=== PATIENT | male | born 1965 | race Caucasian/White ===

== ENCOUNTER 2018-06-09 19:09 | Emergency (ER) | payer OTHER ==
[2018-06-09 19:19] VITALS: BP 119/54
[2018-06-09] MEDS ORDERED: Furosemide 20 MG/2 ML VIAL IV ONE (19:54)
[2018-06-09] MEDS ORDERED: Sodium Chloride 0.9% 10 ML Syringe FLUSH PRN (19:54)
--- NOTE | 2018-06-09 20:00 | EDM.PDOC ---
ED HPI GENERAL MEDICAL PROBLEM - General Chief Complaint: Lower Extremity Injury/Pain Stated Complaint: swollen left leg Time Seen by Provider: 06/09/18 19:30 Source of Information: Reports: Patient, Family, RN, RN Notes Reviewed History Limitations: Reports: No Limitations - History of Present Illness INITIAL COMMENTS - FREE TEXT/NARRATIVE: Patient presents the emergency room at [facility] for evaluation of bilateral lower extremity fluid retention. The patient states while at his oncology appointment today the first noticed he had swelling in his legs, therefore he was given IV Lasix and diuresed very well. The patient states since then his fluid retention has returned. The patient denies any chest pain. The patient does not have any shortness of breath. No focal neurological deficits. The patient denies any pain in the lower extremities. The patient can ambulate without problems. The patient denies any numbness tingling or paresthesias. Otherwise no other concerns. Onset: Today Onset Date: 06/09/18 - Related Data Allergies Allergy/AdvReac Type Severity Reaction Status Date / Time No Known Allergies Allergy Verified 06/09/18 19:16 Home Meds: Home Meds Sennosides/Docusate Sodium [Senna-S] 2 tab PO BID 04/22/18 [History] Varenicline Tartrate [Chantix] 1 mg PO BID 04/22/18 [History] Acetaminophen [Tylenol] 650 mg PO Q4H PRN 06/08/18 [History] Aspirin 81 mg PO DAILY 06/08/18 [History] Clopidogrel Bisulfate [Plavix] 75 mg PO DAILY 06/08/18 [History] Gabapentin [Neurontin] 300 mg PO TID 06/08/18 [History] HYDROmorphone [Dilaudid] 2 mg PO Q3H PRN 06/08/18 [History] Lidocaine 5% [Lidoderm 5%] 1 patch TOP DAILY 06/08/18 [History] Lidocaine/Prilocaine [EMLA Crm] 1 applic TOP ASDIRECTED 06/08/18 [History] Lisinopril 5 mg PO DAILY 06/08/18 [History] Metoprolol Succinate [Toprol XL] 25 mg PO DAILY 06/08/18 [History] Morphine Sulfate [Morphabond ER] 90 mg PO Q8H 06/08/18 [History] Multivitamin with Minerals [Multiple Vitamin] 1 tab PO DAILY 06/08/18 [History] Nitroglycerin [Nitrostat] 0.4 mg SL ASDIRECTED PRN 06/08/18 [History] Omeprazole 40 mg PO DAILY 06/08/18 [History] Polyethylene Glycol 3350 [MiraLAX] 17 gm PO DAILY 06/08/18 [History] Ranitidine [Zantac] 150 mg PO DAILY 06/08/18 [History] atorvaSTATin [Lipitor] 40 mg PO BEDTIME 06/08/18 [History] Past Medical History - Past Health History Medical/Surgical History: Denies Medical/Surgical History Cardiovascular History: Reports: Hypertension Other Cardiovascular History: FAMILY HX ISCHEMIC HEART DISEASE. PAROXYSMAL SUPRAVENTRICULAR TACHYCARDIA Gastrointestinal History: Reports: GERD Other Gastrointestinal History: REFLUX ESOPHAGITIS. barretts esophagus Other Musculoskeletal History: CLOSED FRACTURE OF NASAL BONES Other Psychiatric History: PERSONAL HX OF TOBACCO USE. PERSONAL HX OF ALCOHOLISM Endocrine/Metabolic History: Reports: Obesity/BMI 30+ Other Endocrine/Metabolic History: IMPAIRED FASTING GLUCOSE - Past Surgical History GI Surgical History: Reports: Cholecystectomy Social & Family History - Tobacco Use Smoking Status *Q: Former Smoker Used Tobacco, but Quit: Yes Month/Year Tobacco Last Used: 2018 Review of Systems - Review of Systems Review Of Systems: ROS reveals no pertinent complaints other than HPI. ED EXAM, GENERAL - Physical Exam Exam: See Below Exam Limited By: No Limitations General Appearance: Alert, No Apparent Distress Respiratory/Chest: No Respiratory Distress, Lungs Clear, Normal Breath Sounds Cardiovascular: Normal Peripheral Pulses, Regular Rate, Rhythm, Other (+2 dependent pitting edema bilateral lower extremities) Peripheral Pulses: 2+: Posterior Tibial (L), Posterior Tibial (R), Dorsalis Pedis (L), Dorsalis Pedis (R) GI/Abdominal: Normal Bowel Sounds, Soft, Non-Tender Neurological: Alert, Oriented Skin Exam: Warm, Dry, Intact, Normal Color Course - Vital Signs Last Recorded V/S: Last Vital Signs Temp 36.6 C 06/09/18 19:16 Pulse 70 06/09/18 19:16 Resp 18 06/09/18 19:16 BP 119/54 L 06/09/18 19:16 Pulse Ox 95 06/09/18 19:16 - Orders/Labs/Meds Orders: Active Orders 24 hr Category Date Time Status Furosemide [Lasix] Med 06/09/18 19:54 Once 20 mg IV ONETIME ONE Sodium Chloride 0.9% [Saline Flush] Med 06/09/18 19:54 Ordered 10 ml FLUSH ASDIRECTED PRN Peripheral IV Insertion Adult [OM.PC] Routine Oth 06/09/18 19:54 Ordered Medication Orders Sodium Chloride (Saline Flush) 10 ml FLUSH ASDIRECTED PRN PRN Reason: Keep Vein Open Meds: Medications Generic Name Dose Route Start Last Admin Trade Name Freq PRN Reason Stop Dose Admin Sodium Chloride 10 ml 06/09/18 19:54 Saline Flush FLUSH ASDIRECTED PRN Keep Vein Open Departure - Departure Time of Disposition: 19:58 Disposition: Home, Self-Care 01 Condition: Good Clinical Impression: Fluid retention in legs - Discharge Information *PRESCRIPTION DRUG MONITORING PROGRAM REVIEWED*: Not Applicable *COPY OF PRESCRIPTION DRUG MONITORING REPORT IN PATIENT EVELYN: Not Applicable Instructions: Edema Referrals: Geovani Kelly PA-C [Primary Care Provider] - Additional Instructions: 1. Avoid salt/sodium 2. Continue same medications at home 3. Recommend elevation of legs to help with swelling 4. See Geovani Kelly tomorrow for a recheck - Problem List Review Problem List Initiated/Reviewed/Updated: Yes - My Orders Last 24 Hours: My Active Orders 06/09/18 19:54 Furosemide [Lasix] 20 mg IV ONETIME ONE Sodium Chloride 0.9% [Saline Flush] 10 ml FLUSH ASDIRECTED PRN Peripheral IV Insertion Adult [OM.PC] Routine - Assessment/Plan Last 24 Hours: My Active Orders 06/09/18 19:54 Furosemide [Lasix] 20 mg IV ONETIME ONE Sodium Chloride 0.9% [Saline Flush] 10 ml FLUSH ASDIRECTED PRN Peripheral IV Insertion Adult [OM.PC] Routine Assessment:: Fluid retention Plan: Will give an additional 20 mg of IV Lasix in the emergency room. Recommend the patient contact his PCP tomorrow for a follow-up visit. We did discuss side effects such as low potassium and that he will need to have this checked. No other changes with any medications. Patient to return to the emergency room or call for any questions or concerns.
== END 2018-06-09 21:34 | disposition home or self-care (01) ==
LOC: VM.ED 19:09
DX: R60.0 Localized edema (principal); I10 Essential (primary) hypertension; K21.9 Gastro-esophageal reflux disease without esophagitis; Z87.891 Personal history of nicotine dependence; Z79.899 Other long term (current) drug therapy; Z79.82 Long term (current) use of aspirin
CPT/HCPCS: 96374; 99284; J1940

== ENCOUNTER 2018-06-10 06:12 | Emergency (ER) | payer OTHER ==
[2018-06-10 06:23] VITALS: BP 124/53
[2018-06-10 06:59] LABS: ANION GAP 11.7 mmol/L (10-20); CHLORIDE,CL 99 mmol/L (98-107); SODIUM,NA 137 mmol/L (136-145)
--- NOTE | 2018-06-10 07:07 | EDM.PDOC ---
ED HPI GENERAL MEDICAL PROBLEM - General Chief Complaint: Respiratory Problem Stated Complaint: SHORTNESS OF BREATH Time Seen by Provider: 06/10/18 06:30 Source of Information: Reports: Patient, RN, RN Notes Reviewed History Limitations: Reports: No Limitations - History of Present Illness INITIAL COMMENTS - FREE TEXT/NARRATIVE: Patient presents to the ED at [facility] for the evaluation of SOB and fluid retention. Patient was seen in this ED last evening for the same symptoms. Patient was given IV Lasix and was discharged home. Patient does not have any history of heart failure or cardiac problems. No focal neurological deficits. No chest pain. No other symptoms. Onset: Today - Related Data Allergies Allergy/AdvReac Type Severity Reaction Status Date / Time No Known Allergies Allergy Verified 06/10/18 06:18 Home Meds: Home Meds Sennosides/Docusate Sodium [Senna-S] 2 tab PO BID 04/22/18 [History] Varenicline Tartrate [Chantix] 1 mg PO BID 04/22/18 [History] Acetaminophen [Tylenol] 650 mg PO Q4H PRN 06/08/18 [History] Aspirin 81 mg PO DAILY 06/08/18 [History] Clopidogrel Bisulfate [Plavix] 75 mg PO DAILY 06/08/18 [History] Gabapentin [Neurontin] 300 mg PO TID 06/08/18 [History] HYDROmorphone [Dilaudid] 2 mg PO Q3H PRN 06/08/18 [History] Lidocaine 5% [Lidoderm 5%] 1 patch TOP DAILY 06/08/18 [History] Lidocaine/Prilocaine [EMLA Crm] 1 applic TOP ASDIRECTED 06/08/18 [History] Lisinopril 5 mg PO DAILY 06/08/18 [History] Metoprolol Succinate [Toprol XL] 25 mg PO DAILY 06/08/18 [History] Morphine Sulfate [Morphabond ER] 90 mg PO Q8H 06/08/18 [History] Multivitamin with Minerals [Multiple Vitamin] 1 tab PO DAILY 06/08/18 [History] Nitroglycerin [Nitrostat] 0.4 mg SL ASDIRECTED PRN 06/08/18 [History] Omeprazole 40 mg PO DAILY 06/08/18 [History] Polyethylene Glycol 3350 [MiraLAX] 17 gm PO DAILY 06/08/18 [History] Ranitidine [Zantac] 150 mg PO DAILY 06/08/18 [History] atorvaSTATin [Lipitor] 40 mg PO BEDTIME 06/08/18 [History] Past Medical History - Past Health History Medical/Surgical History: Denies Medical/Surgical History Cardiovascular History: Reports: Hypertension Other Cardiovascular History: FAMILY HX ISCHEMIC HEART DISEASE. PAROXYSMAL SUPRAVENTRICULAR TACHYCARDIA Gastrointestinal History: Reports: GERD Other Gastrointestinal History: REFLUX ESOPHAGITIS. barretts esophagus Other Musculoskeletal History: CLOSED FRACTURE OF NASAL BONES Other Psychiatric History: PERSONAL HX OF TOBACCO USE. 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 He is unsure of the site, states that he thinks it's in the muscle. - Past Surgical History GI Surgical History: Reports: Cholecystectomy Social & Family History - Tobacco Use Smoking Status *Q: Former Smoker Used Tobacco, but Quit: Yes Month/Year Tobacco Last Used: several months ago ED ROS GENERAL - Review of Systems Review Of Systems: See Below Constitutional: Denies: Fever, Chills Respiratory: Reports: Shortness of Breath. Denies: Cough Cardiovascular: Denies: Chest Pain, Palpitations GI/Abdominal: Denies: Abdominal Pain, Nausea, Vomiting Skin: Reports: No Symptoms Neurological: Reports: No Symptoms ED EXAM, GENERAL - Physical Exam Exam: See Below Exam Limited By: No Limitations General Appearance: Alert, No Apparent Distress Respiratory/Chest: No Respiratory Distress, Lungs Clear, Normal Breath Sounds Cardiovascular: Normal Peripheral Pulses, Regular Rate, Rhythm, Other (trace bilateral LE edema) Peripheral Pulses: 2+: Posterior Tibial (L), Posterior Tibial (R), Dorsalis Pedis (L), Dorsalis Pedis (R) GI/Abdominal: Normal Bowel Sounds, Soft, Non-Tender Neurological: Alert, Oriented Skin Exam: Warm, Dry, Intact, Normal Color Course - Vital Signs Last Recorded V/S: Last Vital Signs Temp 36.1 C 06/10/18 06:12 Pulse 74 06/10/18 06:12 Resp 20 06/10/18 06:12 BP 124/53 L 06/10/18 06:12 Pulse Ox 98 06/10/18 06:12 - Orders/Labs/Meds Orders: Active Orders 24 hr Category Date Time Status Chest 2V [CR] Stat Exams 06/10/18 06:15 Taken Labs: Laboratory Tests 06/10/18 Range/Units 06:26 Sodium 137 (136-145) mmol/L Potassium 4.7 (3.5-5.1) mmol/L Chloride 99 (98-107) mmol/L Carbon Dioxide 31 (21-32) mmol/L Anion Gap 11.7 (10-20) mmol/L BUN 20 H (7-18) mg/dL Creatinine 0.8 (0.70-1.30) mg/dL Est Cr Clr Drug Dosing TNP Estimated GFR (MDRD) > 60 Glucose 105 (74-106) mg/dL Calcium 7.9 L (8.5-10.1) mg/dL NT-Pro-B Natriuret Pep 318 H (<=125) pg/mL - Radiology Interpretation Free Text/Narrative:: CXR: No acute abnormalities See scanned report in EMR for details Departure - Departure Time of Disposition: 07:22 Disposition: Home, Self-Care 01 Condition: Good Clinical Impression: Fluid retention in legs - Discharge Information *PRESCRIPTION DRUG MONITORING PROGRAM REVIEWED*: Not Applicable *COPY OF PRESCRIPTION DRUG MONITORING REPORT IN PATIENT EVELYN: Not Applicable Instructions: Edema Referrals: Geovani Kelly PA-C [Ordering Only Provider] - Additional Instructions: See Geovani Kelly in clinic today for follow up - Problem List Review Problem List Initiated/Reviewed/Updated: Yes - My Orders Last 24 Hours: My Active Orders 06/10/18 06:15 Chest 2V [CR] Stat - Assessment/Plan Last 24 Hours: My Active Orders 06/10/18 06:15 Chest 2V [CR] Stat Assessment:: Mild fluid retention Plan: Labs and xray discussed with patient. No acute findings at this point. Patient is feeling much better since just sitting in the ER. Will discharge home and have patient see his PCP in clinic today. Patient agrees with POC and wishes to proceed. Patient discharged in stable condition.
--- NOTE | 2018-06-10 08:59 | CR ---
[id number] RAD/RAD Chest PA And Lateral EXAM: RAD Chest PA And Lateral INDICATION: DYSPNEA. COMPARISON: March 15, 2018. DISCUSSION: Left chest wall Mediport. Cardiomediastinal silhouette is normal in size and contour. No infiltrate, effusion, pneumothorax, or edema. Low lung volumes associated vascular crowding. IMPRESSION: No acute cardiopulmonary abnormality. Abimael Eid DO 06/10/18 0858 Thank you for allowing us to participate in the care of your patient.
== END 2018-06-10 07:27 | disposition home or self-care (01) ==
LOC: VM.ED 06:12
DX: R60.9 Edema, unspecified (principal); I10 Essential (primary) hypertension; K21.9 Gastro-esophageal reflux disease without esophagitis; Z79.82 Long term (current) use of aspirin; Z79.899 Other long term (current) drug therapy; Z87.891 Personal history of nicotine dependence
CPT/HCPCS: 36415; 71046; 80048; 83880; 99285-25

== ENCOUNTER 2018-06-25 18:43 | Observation (INO) | payer OTHER ==
[2018-06-25] MEDS ORDERED: Sodium Chloride 0.9% 10 ML Syringe FLUSH PRN (19:07)
[2018-06-25] MEDS ORDERED: Sodium Chloride 0.9% 1,000 ML IV ONE (19:07)
[2018-06-25 19:49] LABS: CHLORIDE,CL 100 mmol/L (98-107); SODIUM,NA 138 mmol/L (136-145)
[2018-06-25 19:50] LABS: ANION GAP 11.5 mmol/L (10-20)
[2018-06-25] MEDS ORDERED: Sodium Chloride 0.9% 1,000 ML IV SCH ×2 (20:30→21:00)
--- NOTE | 2018-06-25 20:46 | EDM.PDOC ---
ED HPI GENERAL MEDICAL PROBLEM - General Chief Complaint: General Stated Complaint: Lethargic / Low Blood Pressure Time Seen by Provider: 06/25/18 19:00 Source of Information: Reports: Patient - History of Present Illness INITIAL COMMENTS - FREE TEXT/NARRATIVE: Patient comes in to the emergency department with weakness and fatigue. Patient had his port the de-accessed today. He does have active cancer and undergoing treatment. He states that he felt tired and fatigued this morning and they removed his port access however since then he has not felt well. He feels generalized fatigue, weak, nauseous, and lower extremity edema. Onset: Gradual Location: Reports: Generalized Quality: Reports: Ache Severity: Mild Improves with: Reports: None Worsens with: Reports: None Associated Symptoms: Reports: Fever/Chills, Loss of Appetite, Malaise, Nausea/ Vomiting, Weakness - Related Data Allergies Allergy/AdvReac Type Severity Reaction Status Date / Time No Known Allergies Allergy Verified 06/10/18 06:18 Home Meds: Home Meds Sennosides/Docusate Sodium [Senna-S] 2 tab PO BID 04/22/18 [History] Varenicline Tartrate [Chantix] 1 mg PO BID 04/22/18 [History] Acetaminophen [Tylenol] 650 mg PO Q4H PRN 06/08/18 [History] Aspirin 81 mg PO DAILY 06/08/18 [History] Clopidogrel Bisulfate [Plavix] 75 mg PO DAILY 06/08/18 [History] Gabapentin [Neurontin] 300 mg PO TID 06/08/18 [History] HYDROmorphone [Dilaudid] 2 mg PO Q3H PRN 06/08/18 [History] Lidocaine 5% [Lidoderm 5%] 1 patch TOP DAILY 06/08/18 [History] Lidocaine/Prilocaine [EMLA Crm] 1 applic TOP ASDIRECTED 06/08/18 [History] Lisinopril 5 mg PO DAILY 06/08/18 [History] Metoprolol Succinate [Toprol XL] 25 mg PO DAILY 06/08/18 [History] Morphine Sulfate [Morphabond ER] 90 mg PO Q8H 06/08/18 [History] Multivitamin with Minerals [Multiple Vitamin] 1 tab PO DAILY 06/08/18 [History] Nitroglycerin [Nitrostat] 0.4 mg SL ASDIRECTED PRN 06/08/18 [History] Omeprazole 40 mg PO DAILY 06/08/18 [History] Polyethylene Glycol 3350 [MiraLAX] 17 gm PO DAILY 06/08/18 [History] Ranitidine [Zantac] 150 mg PO DAILY 06/08/18 [History] atorvaSTATin [Lipitor] 40 mg PO BEDTIME 06/08/18 [History] Past Medical History - Past Health History Medical/Surgical History: Denies Medical/Surgical History Cardiovascular History: Reports: Hypertension Other Cardiovascular History: FAMILY HX ISCHEMIC HEART DISEASE. PAROXYSMAL SUPRAVENTRICULAR TACHYCARDIA Gastrointestinal History: Reports: GERD Other Gastrointestinal History: REFLUX ESOPHAGITIS. barretts esophagus Other Musculoskeletal History: CLOSED FRACTURE OF NASAL BONES Other Psychiatric History: PERSONAL HX OF TOBACCO USE. 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 He is unsure of the site, states that he thinks it's in the muscle. - Past Surgical History GI Surgical History: Reports: Cholecystectomy ED ROS GENERAL - Review of Systems Review Of Systems: See Below Constitutional: Reports: Malaise, Weakness, Fatigue HEENT: Reports: No Symptoms Respiratory: Reports: No Symptoms Cardiovascular: Reports: No Symptoms Endocrine: Reports: No Symptoms GI/Abdominal: Reports: No Symptoms : Reports: No Symptoms Musculoskeletal: Reports: No Symptoms Skin: Reports: No Symptoms Neurological: Reports: No Symptoms Psychiatric: Reports: No Symptoms Hematologic/Lymphatic: Reports: No Symptoms Immunologic: Reports: No Symptoms ED EXAM, GENERAL - Physical Exam Exam: See Below Exam Limited By: No Limitations General Appearance: Alert, WD/WN, No Apparent Distress Head: Atraumatic, Normocephalic Neck: Normal Inspection, Supple, Non-Tender, Full Range of Motion Respiratory/Chest: No Respiratory Distress, Lungs Clear, Normal Breath Sounds, No Accessory Muscle Use, Chest Non-Tender GI/Abdominal: Normal Bowel Sounds, Soft, Non-Tender, No Distention, No Mass Back Exam: Normal Inspection, Full Range of Motion Extremities: Other (bilateral lower extremity swelling. ) Neurological: Alert, Oriented Psychiatric: Normal Affect, Normal Mood Skin Exam: Other (bilateral lower extremity swelling ) Course - Orders/Labs/Meds Orders: Active Orders 24 hr Category Date Time Status Sodium Chloride 0.9% [Normal Saline] 1,000 ml Med 06/25/18 20:30 Active IV ASDIRECTED Sodium Chloride 0.9% [Saline Flush] Med 06/25/18 19:07 Active 10 ml FLUSH ASDIRECTED PRN Peripheral IV Insertion Adult [OM.PC] Stat Oth 06/25/18 19:07 Ordered Medication Orders Sodium Chloride (Normal Saline) 1,000 mls @ 125 mls/hr IV ASDIRECTED ALEJANDRO Sodium Chloride (Saline Flush) 10 ml FLUSH ASDIRECTED PRN PRN Reason: Keep Vein Open Labs: Laboratory Tests 06/25/18 06/25/18 Range/Units 19:22 19:22 WBC 4.2 (4.0-10.0) x10^3/uL RBC 3.43 L (4.5-6.0) x10^6/uL Hgb 10.4 L D (14.0-18.0) g/dL Hct 33.0 L (40.0-52.0) % MCV 96.2 H D (78.0-93.0) fL MCH 30.3 (26.0-32.0) pg MCHC 31.5 L (32.0-36.0) g/dL RDW Coeff of Saritha 19.0 H (10.0-15.0) % Plt Count 105 L D (130-400) x10^3/uL Neut % (Auto) 67.0 (50.0-80.0) % Lymph % (Auto) 26.1 (25.0-50.0) % Grand % (Auto) 6.7 (2.0-11.0) % Eos % (Auto) 0.0 (0.0-4.0) % Baso % (Auto) 0.2 (0.2-1.2) % Sodium 138 (136-145) mmol/L Potassium 4.5 (3.5-5.1) mmol/L Chloride 100 (98-107) mmol/L Carbon Dioxide 31 (21-32) mmol/L Anion Gap 11.5 (10-20) mmol/L BUN 14 (7-18) mg/dL Creatinine 0.7 (0.70-1.30) mg/dL Est Cr Clr Drug Dosing TNP Estimated GFR (MDRD) > 60 Glucose 101 (74-106) mg/dL Calcium 7.9 L (8.5-10.1) mg/dL Corrected Calcium 9.50 (8.5-10.1) mg/dL Total Bilirubin 0.7 (0.2-1.0) mg/dL AST 54 H (15-37) U/L ALT 42 (16-63) U/L Alkaline Phosphatase 106 (46-116) U/L Total Protein 5.5 L (6.4-8.2) g/dL Albumin 2.0 L (3.4-5.0) g/dL Globulin 3.5 Albumin/Globulin Ratio 0.57 Meds: Medications Generic Name Dose Route Start Last Admin Trade Name Freq PRN Reason Stop Dose Admin Sodium Chloride 1,000 mls @ 125 mls/hr 06/25/18 20:30 Normal Saline IV ASDIRECTED ALEJANDRO Sodium Chloride 10 ml 06/25/18 19:07 Saline Flush FLUSH ASDIRECTED PRN Keep Vein Open Discontinued Medications Generic Name Dose Route Start Last Admin Trade Name Freq PRN Reason Stop Dose Admin Sodium Chloride 1,000 mls @ 1,000 mls/hr 06/25/18 19:07 06/25/18 19:14 Normal Saline IV 06/25/18 20:06 1,000 mls/hr ONETIME ONE Administration Departure - Departure Time of Disposition: 20:40 Disposition: Refer to Observation Condition: Good Clinical Impression: Dehydration, Fatigue due to treatment Hypotension Qualifiers: Hypotension type: unspecified hypotension type Qualified Code(s): I95.9 - Hypotension, unspecified - Discharge Information *PRESCRIPTION DRUG MONITORING PROGRAM REVIEWED*: Not Applicable *COPY OF PRESCRIPTION DRUG MONITORING REPORT IN PATIENT EVELYN: Not Applicable - Problem List Review Problem List Initiated/Reviewed/Updated: Yes - My Orders Last 24 Hours: My Active Orders 06/25/18 19:07 Sodium Chloride 0.9% [Saline Flush] 10 ml FLUSH ASDIRECTED PRN Peripheral IV Insertion Adult [OM.PC] Stat 06/25/18 20:30 Sodium Chloride 0.9% [Normal Saline] 1,000 ml IV ASDIRECTED - Assessment/Plan Admission H&P: Please use this note as an admission H&P Last 24 Hours: My Active Orders 06/25/18 19:07 Sodium Chloride 0.9% [Saline Flush] 10 ml FLUSH ASDIRECTED PRN Peripheral IV Insertion Adult [OM.PC] Stat 06/25/18 20:30 Sodium Chloride 0.9% [Normal Saline] 1,000 ml IV ASDIRECTED Assessment:: 1. weakness 2. fatigue 3. nausea 4. hypotension Plan: 1. labs completed in ER. results reviewed with the pt. 2. IV fluid bolus given for hypotension 3. Pt continues to feel fatigue and weak. but does feel a bit better with the fluid bolus. Pt will be admitted over night to observation for further slower rehydration. Will continue to monitor is blood pressure for it was low upon arrival. Pt does have lower extremity edema that he is currently being treated for a DVT and we do not want to give to much fluid at once. 4. pt is agreeable to this plan 5. Pt will be admitted to observation for further management. 6. All questions and concerns addressed prior to admit 7. Labs will be ordered for the am
[2018-06-25] MEDS ORDERED: Ondansetron 4 MG Tab.DIS PO PRN (20:54)
[2018-06-25] MEDS ORDERED: Acetaminophen 325 MG Tab PO PRN (20:54)
[2018-06-25] MEDS ORDERED: Ibuprofen 200 MG Tab PO PRN (20:54)
[2018-06-25] MEDS ORDERED: Nitroglycerin 0.4 MG Tab.SL SL PRN (20:59)
[2018-06-25] MEDS ORDERED: Morphine 60 MG Tab.ER PO SCH (21:00)
[2018-06-26] MEDS: Morphine 30 MG Tab.ER PO SCH ×2 (00:58→09:00)
[2018-06-26] MEDS ORDERED: Aspirin 81 MG Tab.Chew PO SCH (08:00)
[2018-06-26] MEDS ORDERED: Polyethylene Glycol 3350 Powder 17 GM Packet PO SCH (08:00)
[2018-06-26] MEDS ORDERED: Famotidine 20 MG Tab PO SCH (08:00)
[2018-06-26] MEDS ORDERED: Non-Formulary Medication 1 Each (Lidocaine 5% [Lidoderm 5%] 1 PATCH) TOP SCH (08:00)
[2018-06-26] MEDS ORDERED: Metoprolol Succinate 25 MG Tab.ER PO SCH (08:00)
[2018-06-26] MEDS ORDERED: Omeprazole 20 MG Cap.CR PO SCH (08:00)
[2018-06-26] MEDS ORDERED: Lisinopril 5 MG Tab PO SCH (08:00)
[2018-06-26] MEDS ORDERED: Clopidogrel 75 MG Tab PO SCH (08:00)
[2018-06-26 08:53] LABS: CHLORIDE,CL 102 mmol/L (98-107); SODIUM,NA 138 mmol/L (136-145)
[2018-06-26 08:57] LABS: ANION GAP 11.5 mmol/L (10-20)
[2018-06-26] MEDS: Gabapentin 300 MG Cap PO SCH ×2 (09:00→11:57)
[2018-06-26] MEDS ORDERED: Lidocaine 4% 1 each Patch TOP SCH (10:48)
[2018-06-26] MEDS ORDERED: Enoxaparin 100 MG/1 ML Syringe SUBCUT SCH (11:00)
--- NOTE | 2018-06-26 11:10 | PCM.DCSUM1 ---
Discharge Summary - Hospital Course HPI Initial Comments: ER HPI: Patient comes in to the emergency department with weakness and fatigue. Patient had his port the de-accessed today. He does have active cancer and undergoing treatment. He states that he felt tired and fatigued this morning and they removed his port access however since then he has not felt well. He feels generalized fatigue, weak, nauseous, and lower extremity edema. Brief History: Patient was admitted for observation overnight. Patient received fluids and elevated his feet. Patient states that over the night he's felt much better with his increase in fluid. He also states that the swelling in his lower extremities have decreased. He states that he feels much better. He has had no concerns or complaints overnight. As that he can go home and continue to rest. Vital signs have remained stable. Patient is eating and tolerating ambulation without incident. Labs this morning have showed improvement. She like to go home and continue the healing process. Diagnosis: Stroke: No - Discharge Data Discharge Date: 06/26/18 Discharge Disposition: Home, Self-Care 01 Condition: Good - Discharge Diagnosis/Problem(s) (1) Dehydration SNOMED Code(s): 13646655 ICD Code: E86.0 - DEHYDRATION Status: Acute Current Visit: Yes (2) Fatigue due to treatment SNOMED Code(s): 945583147 ICD Code: R53.83 - OTHER FATIGUE Status: Acute Current Visit: Yes (3) Hypotension SNOMED Code(s): 05192380 ICD Code: I95.9 - HYPOTENSION, UNSPECIFIED Status: Acute Current Visit: Yes Qualifiers: Hypotension type: unspecified hypotension type Qualified Code(s): I95.9 - Hypotension, unspecified - Patient Summary/Data Recommended Follow-up Testing/Procedures: Follow up with PCP or Oncologist within 2-3 days - Patient Instructions Diet: Heart Healthy Diet Activity: As Tolerated, No Strenuous Activities Driving: May Drive Today Showering/Bathing: May Shower Notify Provider of: Fever, Increased Pain - Discharge Plan *PRESCRIPTION DRUG MONITORING PROGRAM REVIEWED*: Not Applicable *COPY OF PRESCRIPTION DRUG MONITORING REPORT IN PATIENT EVELYN: Not Applicable Home Medications: Home Meds Sennosides/Docusate Sodium [Senna-S] 2 tab PO BID 04/22/18 [History] Varenicline Tartrate [Chantix] 1 mg PO BID 04/22/18 [History] Acetaminophen [Tylenol] 650 mg PO Q4H PRN 06/08/18 [History] Clopidogrel Bisulfate [Plavix] 75 mg PO DAILY 06/08/18 [History] Gabapentin [Neurontin] 300 mg PO TID 06/08/18 [History] HYDROmorphone [Dilaudid] 2 mg PO Q3H PRN 06/08/18 [History] Lidocaine 5% [Lidoderm 5%] 1 patch TOP DAILY 06/08/18 [History] Lidocaine/Prilocaine [EMLA Crm] 1 applic TOP ASDIRECTED 06/08/18 [History] Morphine Sulfate [Morphabond ER] 60 mg PO BID 06/08/18 [History] Multivitamin with Minerals [Multiple Vitamin] 1 tab PO DAILY 06/08/18 [History] Nitroglycerin [Nitrostat] 0.4 mg SL ASDIRECTED PRN 06/08/18 [History] Omeprazole 40 mg PO DAILY 06/08/18 [History] Polyethylene Glycol 3350 [MiraLAX] 17 gm PO DAILY 06/08/18 [History] Ranitidine [Zantac] 150 mg PO DAILY 06/08/18 [History] atorvaSTATin [Lipitor] 40 mg PO BEDTIME 06/08/18 [History] Calcium Carbonate [Calci-Chew] 500 mg PO TID 06/25/18 [History] Enoxaparin [Lovenox] 100 mg SUBCUT DAILY 06/25/18 [History] Lisinopril 10 mg PO DAILY 06/25/18 [History] Metoprolol Succinate [Toprol XL] 25 mg PO DAILY 06/25/18 [History] Nystatin 100,000 unit PO QID 06/25/18 [History] Prochlorperazine Maleate [Compazine] 10 mg PO QID PRN 06/25/18 [History] Simethicone 80 mg PO QID PRN 06/25/18 [History] Forms: ED Department Discharge Referrals: Geovani Kelly PA-C [Primary Care Provider] - - Discharge Summary/Plan Comment DC Time >30 min.: No - General Info Date of Service: 06/26/18 Admission Dx/Problem (Free Text: 1. dehydration 2. fatigue Functional Status: Reports: Pain Controlled, Tolerating Diet, Ambulating - Review of Systems General: Reports: No Symptoms HEENT: Reports: No Symptoms Pulmonary: Reports: No Symptoms Cardiovascular: Reports: No Symptoms Gastrointestinal: Reports: No Symptoms Genitourinary: Reports: No Symptoms Musculoskeletal: Reports: No Symptoms Skin: Reports: No Symptoms Neurological: Reports: No Symptoms Psychiatric: Reports: No Symptoms - Patient Data Vitals - Most Recent: Last Vital Signs Temp 36.8 C 06/26/18 05:24 Pulse 71 06/26/18 09:06 Resp 18 06/26/18 05:24 BP 93/52 L 06/26/18 09:06 Pulse Ox 98 06/26/18 07:32 Weight - Most Recent: 133.356 kg I&O - Last 24 hours: Intake & Output 06/25/18 06/26/18 06/26/18 22:59 06:59 14:59 Intake Total 1673 180 Output Total 2400 Balance -727 180 Lab Results - Last 24 hrs: Laboratory Results - last 24 hr 06/25/18 06/25/18 06/26/18 Range/Units 19:22 19:22 08:14 WBC 4.2 4.9 (4.0-10.0) x10^3/uL RBC 3.43 L 3.38 L (4.5-6.0) x10^6/uL Hgb 10.4 L D 10.3 L (14.0-18.0) g/dL Hct 33.0 L 32.6 L (40.0-52.0) % MCV 96.2 H D 96.4 H (78.0-93.0) fL MCH 30.3 30.5 (26.0-32.0) pg MCHC 31.5 L 31.6 L (32.0-36.0) g/dL RDW Coeff of Saritha 19.0 H 18.8 H (10.0-15.0) % Plt Count 105 L D 96 L (130-400) x10^3/uL Neut % (Auto) 67.0 69.9 (50.0-80.0) % Lymph % (Auto) 26.1 22.7 L (25.0-50.0) % [place] % (Auto) 6.7 6.8 (2.0-11.0) % Eos % (Auto) 0.0 0.2 (0.0-4.0) % Baso % (Auto) 0.2 0.4 (0.2-1.2) % Sodium 138 (136-145) mmol/L Potassium 4.5 (3.5-5.1) mmol/L Chloride 100 (98-107) mmol/L Carbon Dioxide 31 (21-32) mmol/L Anion Gap 11.5 (10-20) mmol/L BUN 14 (7-18) mg/dL Creatinine 0.7 (0.70-1.30) mg/dL Est Cr Clr Drug Dosing TNP Estimated GFR (MDRD) > 60 Glucose 101 (74-106) mg/dL Calcium 7.9 L (8.5-10.1) mg/dL Corrected Calcium 9.50 (8.5-10.1) mg/dL Total Bilirubin 0.7 (0.2-1.0) mg/dL AST 54 H (15-37) U/L ALT 42 (16-63) U/L Alkaline Phosphatase 106 (46-116) U/L Total Protein 5.5 L (6.4-8.2) g/dL Albumin 2.0 L (3.4-5.0) g/dL Globulin 3.5 Albumin/Globulin Ratio 0.57 /09/08 Range/Units 08:14 WBC (4.0-10.0) x10^3/uL RBC (4.5-6.0) x10^6/uL Hgb (14.0-18.0) g/dL Hct (40.0-52.0) % MCV (78.0-93.0) fL MCH (26.0-32.0) pg MCHC (32.0-36.0) g/dL RDW Coeff of Saritha (10.0-15.0) % Plt Count (130-400) x10^3/uL Neut % (Auto) (50.0-80.0) % Lymph % (Auto) (25.0-50.0) % [place] % (Auto) (2.0-11.0) % Eos % (Auto) (0.0-4.0) % Baso % (Auto) (0.2-1.2) % Sodium 138 (136-145) mmol/L Potassium 4.5 (3.5-5.1) mmol/L Chloride 102 (98-107) mmol/L Carbon Dioxide 29 (21-32) mmol/L Anion Gap 11.5 (10-20) mmol/L BUN 12 (7-18) mg/dL Creatinine 0.7 (0.70-1.30) mg/dL Est Cr Clr Drug Dosing 141.89 Estimated GFR (MDRD) > 60 Glucose 108 H (74-106) mg/dL Calcium 7.7 L (8.5-10.1) mg/dL Corrected Calcium (8.5-10.1) mg/dL Total Bilirubin (0.2-1.0) mg/dL AST (15-37) U/L ALT (16-63) U/L Alkaline Phosphatase (46-116) U/L Total Protein (6.4-8.2) g/dL Albumin (3.4-5.0) g/dL Globulin Albumin/Globulin Ratio Med Orders - Current: Current Medications Acetaminophen (Tylenol) 650 mg PO Q4H PRN PRN Reason: Pain (Mild 1-3)/fever Aspirin (Aspirin) 81 mg PO DAILY [facility] Last Admin: 06/26/18 08:59 Dose: 81 mg Atorvastatin Calcium (Lipitor) 40 mg PO BEDTIME [facility] Clopidogrel Bisulfate (Plavix) 75 mg PO DAILY [facility] Last Admin: 06/26/18 08:59 Dose: 75 mg Enoxaparin Sodium (Lovenox) 200 mg SUBCUT Q24H [facility] Famotidine (Pepcid) 20 mg PO DAILY [facility] Last Admin: 06/26/18 09:05 Dose: 20 mg Gabapentin (Neurontin) 300 mg PO TID [facility] Last Admin: 06/26/18 09:00 Dose: 300 mg Sodium Chloride (Normal Saline) 1,000 mls @ 125 mls/hr IV ASDIRECTED [facility] Ibuprofen (Motrin) 600 mg PO Q6H PRN PRN Reason: Pain (mild 1-3) Lidocaine (Aspercreme 4%) 1 each TOP DAILY [facility] Lisinopril (Prinivil) 5 mg PO DAILY [facility] Last Admin: 06/26/18 09:06 Dose: 5 mg Metoprolol Succinate (Toprol Xl) 25 mg PO DAILY [facility] Last Admin: 06/26/18 09:06 Dose: 25 mg Miscellaneous Information (Remove Patch) 1 ea TRDERM BEDTIME [facility] Morphine Sulfate (Ms Contin) 60 mg PO BID [facility] Last Admin: 06/26/18 09:00 Dose: 60 mg Nitroglycerin (Nitrostat) 0.4 mg SL ASDIRECTED PRN PRN Reason: Chest Pain Omeprazole (Omeprazole) 40 mg PO DAILY [facility] Last Admin: 06/26/18 09:00 Dose: 40 mg Ondansetron HCl (Zofran Odt) 4 mg PO Q6H PRN PRN Reason: nausea, able to take PO Polyethylene Glycol (Miralax) 17 gm PO DAILY [facility] Last Admin: 06/26/18 08:59 Dose: 17 gm Senna/Docusate Sodium (Senna Plus) 2 tab PO BID [facility] Last Admin: 06/26/18 08:59 Dose: 2 tab Sodium Chloride (Saline Flush) 10 ml FLUSH ASDIRECTED PRN PRN Reason: Keep Vein Open Discontinued Medications Sodium Chloride (Normal Saline) 1,000 mls @ 1,000 mls/hr IV ONETIME ONE Stop: 06/25/18 20:06 Last Admin: 06/25/18 19:14 Dose: 1,000 mls/hr Sodium Chloride (Normal Saline) 1,000 mls @ 125 mls/hr IV ASDIRECTED [facility] Last Admin: 06/25/18 22:35 Dose: 125 mls/hr Non-Formulary Medication (Lidocaine 5% [Lidoderm 5%]) 1 patch TOP DAILY [facility] - Exam General: Reports: Alert, Oriented HEENT: Reports: Pupils Equal, Pupils Reactive, EOMI, Mucous Membr. Moist/[place] Neck: Reports: Supple Lungs: Reports: Clear to Auscultation, Normal Respiratory Effort Cardiovascular: Reports: Regular Rate, Regular Rhythm GI/Abdominal Exam: Normal Bowel Sounds, Soft, Non-Tender, No Distention Back Exam: Reports: Normal Inspection, Full Range of Motion Extremities: Normal Range of Motion, Non-Tender, Pedal Edema Skin: Reports: Warm, Dry, Intact Psy/Mental Status: Reports: Alert, Normal Affect, Normal Mood
[2018-06-26] MEDS ORDERED: Acetaminophen 325 MG Tab PO PRN (11:16)
[2018-06-26] MEDS ORDERED: HYDROmorphone 2 MG Tab PO PRN (11:16)
[2018-06-26] MEDS ORDERED: Simethicone 80 MG Tab.Chew PO PRN (11:16)
[2018-06-26] MEDS ORDERED: Lidocaine/Prilocaine 2.5-2.5% Crm 5 GM Tube TOP SCH (11:30)
[2018-06-26] MEDS ORDERED: Nystatin Susp 100,000 Unit/ML 5 ML UD Cup PO SCH (12:00)
[2018-06-26] MEDS ORDERED: Prochlorperazine 5 MG Tab PO PRN (12:00)
[2018-06-26] MEDS ORDERED: Calcium Carbonate 750 MG Tab.Chew PO SCH (12:00)
[2018-06-26 12:27] VITALS: BP 92/56
[2018-06-26] MEDS ORDERED: Non-Formulary Medication 1 Each (Varenicline Tartrate [Chantix] 1 MG) PO SCH (20:00)
[2018-06-26] MEDS ORDERED: atorvaSTATin 40 MG Tab PO SCH (20:00)
[2018-06-27] MEDS ORDERED: Lisinopril 10 MG Tab PO SCH (08:00)
[2018-06-27] MEDS ORDERED: Multivitamins with Iron/Calcium/Folic Acid/Minerals Tab PO SCH (08:00)
[2018-06-27] MEDS ORDERED: Enoxaparin 100 MG/1 ML Syringe SUBCUT SCH (08:00)
[2018-06-27] MEDS ORDERED: Metoprolol Succinate 25 MG Tab.ER PO SCH (08:00)
== END 2018-06-26 15:00 | disposition home or self-care (01) ==
LOC: SUPCPDRO 18:43 → VM.ED 18:43 → VM.MS 20:32
PROVIDERS: ADMIT Nurse Practitioner; ATTEND Nurse Practitioner
DX: E86.0 Dehydration (principal); R53.83 Other fatigue; I95.9 Hypotension, unspecified; E66.9 Obesity, unspecified; Z87.891 Personal history of nicotine dependence; Z79.02 Long term (current) use of antithrombotics/antiplatelets; Z79.899 Other long term (current) drug therapy
CPT/HCPCS: 36415; 80048; 80053; 85025; 94760; 96360; 96372; 99285-25; A9270-GY; G0378; J1650; J7030

== ENCOUNTER 2018-07-09 20:32 | Emergency (ER) | payer OTHER ==
[2018-07-09 20:38] VITALS: BP 133/63
[2018-07-09] MEDS ORDERED: Sodium Chloride 0.9% 1,000 ML IV ONE (20:49)
[2018-07-09] MEDS ORDERED: Sodium Chloride 0.9% 10 ML Syringe FLUSH PRN (20:49)
--- NOTE | 2018-07-09 21:00 | EDM.PDOC ---
ED HPI GENERAL MEDICAL PROBLEM - General Chief Complaint: General Stated Complaint: nausea, fatigue Time Seen by Provider: 07/09/18 20:45 Source of Information: Reports: Patient History Limitations: Reports: No Limitations - History of Present Illness INITIAL COMMENTS - FREE TEXT/NARRATIVE: Patient comes into the Emergency department for complaints of nausea and fatigue postchemotherapy today. Patient states that he had his chemotherapy removed at about 1237 today. He did tell the nurse that he was not feeling well they suggested that he go home and rest and if not feeling better by early this evening to come into the ER. Patient denies any fever, chest pain, sob, or diarrhea. Onset: Gradual Location: Reports: Generalized Quality: Reports: Ache Severity: Mild Improves with: Reports: None Worsens with: Reports: None - Related Data Allergies Allergy/AdvReac Type Severity Reaction Status Date / Time No Known Allergies Allergy Verified 07/09/18 20:34 Home Meds: Home Meds Sennosides/Docusate Sodium [Senna-S] 2 tab PO BID 04/22/18 [History] Varenicline Tartrate [Chantix] 1 mg PO BID 04/22/18 [History] Acetaminophen [Tylenol] 650 mg PO Q4H PRN 06/08/18 [History] Clopidogrel Bisulfate [Plavix] 75 mg PO DAILY 06/08/18 [History] Gabapentin [Neurontin] 300 mg PO TID 06/08/18 [History] HYDROmorphone [Dilaudid] 2 mg PO Q3H PRN 06/08/18 [History] Lidocaine 5% [Lidoderm 5%] 1 patch TOP DAILY 06/08/18 [History] Lidocaine/Prilocaine [EMLA Crm] 1 applic TOP ASDIRECTED 06/08/18 [History] Morphine Sulfate [Morphabond ER] 60 mg PO BID 06/08/18 [History] Multivitamin with Minerals [Multiple Vitamin] 1 tab PO DAILY 06/08/18 [History] Nitroglycerin [Nitrostat] 0.4 mg SL ASDIRECTED PRN 06/08/18 [History] Omeprazole 40 mg PO DAILY 06/08/18 [History] Polyethylene Glycol 3350 [MiraLAX] 17 gm PO DAILY 06/08/18 [History] Ranitidine [Zantac] 150 mg PO DAILY 06/08/18 [History] atorvaSTATin [Lipitor] 40 mg PO BEDTIME 06/08/18 [History] Calcium Carbonate [Calci-Chew] 500 mg PO TID 06/25/18 [History] Enoxaparin [Lovenox] 100 mg SUBCUT DAILY 06/25/18 [History] Lisinopril 10 mg PO DAILY 06/25/18 [History] Metoprolol Succinate [Toprol XL] 25 mg PO DAILY 06/25/18 [History] Nystatin 100,000 unit PO QID 06/25/18 [History] Prochlorperazine Maleate [Compazine] 10 mg PO QID PRN 06/25/18 [History] Simethicone 80 mg PO QID PRN 06/25/18 [History] Past Medical History - Past Health History Medical/Surgical History: Denies Medical/Surgical History Cardiovascular History: Reports: Hypertension, [place] Other Cardiovascular History: PAROXYSMAL SUPRAVENTRICULAR TACHYCARDIA Gastrointestinal History: Reports: GERD, Other (See Below) Other Gastrointestinal History: barretts esophagus Musculoskeletal History: Reports: Other (See Below) Other Musculoskeletal History: CLOSED FRACTURE OF NASAL BONES Psychiatric History: Reports: Other (See Below) Other Psychiatric History: PERSONAL HX OF TOBACCO USE. 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 He is unsure of the site, states that he thinks it's in the muscle. - Past Surgical History GI Surgical History: Reports: Cholecystectomy, Colonoscopy Social & Family History - Family History Family Medical History: Noncontributory Cardiac: Reports: Other (See Below) Other Cardiac Family History: FAMILY HX ISCHEMIC HEART DISEASE - Tobacco Use Used Tobacco, but Quit: Yes Month/Year Tobacco Last Used: 2017 - Caffeine Use Caffeine Use: Reports: Coffee ED ROS GENERAL - Review of Systems Review Of Systems: See Below Constitutional: Reports: Malaise, Weakness, Fatigue HEENT: Reports: No Symptoms Respiratory: Reports: No Symptoms Cardiovascular: Reports: No Symptoms Endocrine: Reports: No Symptoms GI/Abdominal: Reports: No Symptoms : Reports: No Symptoms Musculoskeletal: Reports: No Symptoms Skin: Reports: No Symptoms Neurological: Reports: No Symptoms Psychiatric: Reports: No Symptoms Hematologic/Lymphatic: Reports: No Symptoms Immunologic: Reports: No Symptoms ED EXAM, GENERAL - Physical Exam Exam: See Below Exam Limited By: No Limitations General Appearance: Alert, WD/WN, No Apparent Distress Head: Atraumatic, Normocephalic Neck: Normal Inspection, Supple, Non-Tender, Full Range of Motion Respiratory/Chest: No Respiratory Distress, Lungs Clear, Normal Breath Sounds, No Accessory Muscle Use, Chest Non-Tender Cardiovascular: Normal Peripheral Pulses, No Edema, Tachycardia Back Exam: Normal Inspection, Full Range of Motion Extremities: Normal Inspection, Normal Range of Motion, Non-Tender, No Pedal Edema, Normal Capillary Refill Neurological: Alert, Oriented Psychiatric: Normal Affect, Normal Mood Skin Exam: Warm, Dry, Intact, Normal Color, No Rash Course - Vital Signs Last Recorded V/S: Last Vital Signs Temp 37.7 C 07/09/18 20:35 Pulse 80 07/09/18 20:35 Resp 19 07/09/18 20:35 BP 133/63 07/09/18 20:35 Pulse Ox 95 07/09/18 20:35 - Orders/Labs/Meds Orders: Active Orders 24 hr Category Date Time Status Sodium Chloride 0.9% [Saline Flush] Med 07/09/18 20:49 Active 10 ml FLUSH ASDIRECTED PRN Peripheral IV Insertion Adult [OM.PC] Stat Oth 07/09/18 20:49 Ordered Medication Orders Sodium Chloride (Saline Flush) 10 ml FLUSH ASDIRECTED PRN PRN Reason: Keep Vein Open Labs: Laboratory Tests 07/09/18 07/09/18 Range/Units 21:18 21:18 WBC 2.2 L (4.0-10.0) x10^3/uL RBC 3.21 L (4.5-6.0) x10^6/uL Hgb 9.8 L (14.0-18.0) g/dL Hct 30.5 L (40.0-52.0) % MCV 95.0 H (78.0-93.0) fL MCH 30.5 (26.0-32.0) pg MCHC 32.1 (32.0-36.0) g/dL RDW Coeff of Saritha 16.9 H (10.0-15.0) % Plt Count 279 D (130-400) x10^3/uL Neut % (Auto) 58.1 (50.0-80.0) % Lymph % (Auto) 35.0 (25.0-50.0) % [place] % (Auto) 6.4 (2.0-11.0) % Eos % (Auto) 0.0 (0.0-4.0) % Baso % (Auto) 0.5 (0.2-1.2) % Sodium 137 (136-145) mmol/L Potassium 4.3 (3.5-5.1) mmol/L Chloride 102 (98-107) mmol/L Carbon Dioxide 28 (21-32) mmol/L Anion Gap 11.3 (10-20) mmol/L BUN 9 (7-18) mg/dL Creatinine 0.7 (0.70-1.30) mg/dL Est Cr Clr Drug Dosing TNP Estimated GFR (MDRD) > 60 Glucose 104 (74-106) mg/dL Calcium 7.9 L (8.5-10.1) mg/dL Corrected Calcium 9.42 (8.5-10.1) mg/dL Total Bilirubin 0.5 (0.2-1.0) mg/dL AST 19 (15-37) U/L ALT 12 L (16-63) U/L Alkaline Phosphatase 89 (46-116) U/L Total Protein 6.5 (6.4-8.2) g/dL Albumin 2.1 L (3.4-5.0) g/dL Globulin 4.4 Albumin/Globulin Ratio 0.48 Meds: Medications Generic Name Dose Route Start Last Admin Trade Name Freq PRN Reason Stop Dose Admin Sodium Chloride 10 ml 07/09/18 20:49 Saline Flush FLUSH ASDIRECTED PRN Keep Vein Open Discontinued Medications Generic Name Dose Route Start Last Admin Trade Name Freq PRN Reason Stop Dose Admin Sodium Chloride 1,000 mls @ 1,000 mls/hr 07/09/18 20:49 07/09/18 21:20 Normal Saline IV 07/09/18 21:48 1,000 mls/hr ONETIME ONE Administration Ondansetron HCl 4 mg 07/09/18 21:10 07/09/18 21:20 Zofran IVPUSH 07/09/18 21:11 4 mg ONETIME ONE Administration - Re-Assessments/Exams Free Text/Narrative Re-Assessment/Exam: 07/09/18 23:06 Pt is feeling better and feels he can go home and rest at home. VVS. Resting comfortably. conversing with staff and family. ambulatory with a cane. Departure - Departure Time of Disposition: 23:00 Disposition: Home, Self-Care 01 Condition: Fair Clinical Impression: Fatigue due to treatment - Discharge Information *PRESCRIPTION DRUG MONITORING PROGRAM REVIEWED*: Not Applicable *COPY OF PRESCRIPTION DRUG MONITORING REPORT IN PATIENT EVELYN: Not Applicable Instructions: Weakness, [id number], Dehydration, Adult, [id number] Referrals: Geovani Kelly PA-C [Primary Care Provider] - Forms: ED Department Discharge Additional Instructions: 1. rest 2. increase water intake 3. Follow up with oncologist and discuss options if appropriate to receiving IV fluids and zofran in the outpatient setting periodically during chemo treatment 4. Follow up as needed 5. Activity and diet as tolerated 6. Call with any questions or concerns - My Orders Last 24 Hours: My Active Orders 07/09/18 20:49 Sodium Chloride 0.9% [Saline Flush] 10 ml FLUSH ASDIRECTED PRN Peripheral IV Insertion Adult [OM.PC] Stat - Assessment/Plan Last 24 Hours: My Active Orders 07/09/18 20:49 Sodium Chloride 0.9% [Saline Flush] 10 ml FLUSH ASDIRECTED PRN Peripheral IV Insertion Adult [OM.PC] Stat Assessment:: 1. fatigue 2. nausea Plan: 1. Labs completed in the ER 2. IV fluids given in the ER 3. Patient is feeling better and feels he can go home. It is advisable to have the patient rest at home away from other illnesses if possible with his low white count post chemotherapy today. Patient is aware and will return if need be. 4. Did discuss with the patient to talk with his oncologist about seeing if fluids in the outpatient clinic would be an option. He has needed to come into the ER for fluids after his last chemo treatment and not again. 5. All questions and concerns were addressed prior to discharge
[2018-07-09] MEDS ORDERED: Ondansetron 4 MG/2 ML SDV IVPUSH ONE (21:10)
[2018-07-09 21:44] LABS: CHLORIDE,CL 102 mmol/L (98-107); SODIUM,NA 137 mmol/L (136-145)
[2018-07-09 21:45] LABS: ANION GAP 11.3 mmol/L (10-20)
== END 2018-07-09 23:09 | disposition home or self-care (01) ==
LOC: VM.ED 20:32
DX: R53.83 Other fatigue (principal); K21.9 Gastro-esophageal reflux disease without esophagitis; R11.0 Nausea; I10 Essential (primary) hypertension; I25.2 Old myocardial infarction; Z79.899 Other long term (current) drug therapy; Z87.891 Personal history of nicotine dependence
CPT/HCPCS: 36415; 80053; 85025; 96361; 96374; 99283; J2405; J7030

== ENCOUNTER 2018-08-05 19:23 | Emergency (ER) | payer OTHER ==
[2018-08-05] MEDS ORDERED: Ondansetron 4 MG/2 ML SDV IVPUSH ONE (19:33)
[2018-08-05] MEDS ORDERED: Sodium Chloride 0.9% 10 ML Syringe FLUSH PRN (19:33)
[2018-08-05] MEDS ORDERED: Lactated Ringers 1,000 ML IV ONE (19:33)
[2018-08-05 20:17] VITALS: BP 110/39
[2018-08-05] MEDS ORDERED: LORazepam 0.5 MG Tab PO ONE (22:00)
--- NOTE | 2018-08-05 22:37 | EDM.PDOC ---
ED HPI GENERAL MEDICAL PROBLEM - General Chief Complaint: General Stated Complaint: Nausea, weakness Time Seen by Provider: 08/05/18 19:23 Source of Information: Reports: Patient History Limitations: Reports: No Limitations - History of Present Illness INITIAL COMMENTS - FREE TEXT/NARRATIVE: Pt. presents to ER with complaints of dehydration. 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 He complains that he does not feel like eating or drinking and feels as though he is dehydrated. He denies any other symptoms other than some fatigue. Denies any fever or chills. No chest pain or shortness of breath. No nausea, vomiting, or diarrhea. He states that he was seen in clinic yesterday for oncology and states that everything was normal on his labs. He is requesting some IV fluids. He states that he has had them in the past when he has been dehydrated. He also complains of difficulty sleeping and feeling anxious. Denies any suicidal or homicidal thoughts. Onset Date: 08/05/18 - Related Data Allergies Allergy/AdvReac Type Severity Reaction Status Date / Time No Known Allergies Allergy Verified 08/05/18 20:17 Home Meds: Home Meds Sennosides/Docusate Sodium [Senna-S] 2 tab PO BID 04/22/18 [History] Varenicline Tartrate [Chantix] 1 mg PO BID 04/22/18 [History] Acetaminophen [Tylenol] 650 mg PO Q4H PRN 06/08/18 [History] Clopidogrel Bisulfate [Plavix] 75 mg PO DAILY 06/08/18 [History] Gabapentin [Neurontin] 300 mg PO TID 06/08/18 [History] HYDROmorphone [Dilaudid] 2 mg PO Q3H PRN 06/08/18 [History] Lidocaine 5% [Lidoderm 5%] 1 patch TOP DAILY 06/08/18 [History] Lidocaine/Prilocaine [EMLA Crm] 1 applic TOP ASDIRECTED 06/08/18 [History] Morphine Sulfate [Morphabond ER] 60 mg PO BID 06/08/18 [History] Multivitamin with Minerals [Multiple Vitamin] 1 tab PO DAILY 06/08/18 [History] Nitroglycerin [Nitrostat] 0.4 mg SL ASDIRECTED PRN 06/08/18 [History] Omeprazole 40 mg PO DAILY 06/08/18 [History] Polyethylene Glycol 3350 [MiraLAX] 17 gm PO DAILY 06/08/18 [History] Ranitidine [Zantac] 150 mg PO DAILY 06/08/18 [History] atorvaSTATin [Lipitor] 40 mg PO BEDTIME 06/08/18 [History] Calcium Carbonate [Calci-Chew] 500 mg PO TID 06/25/18 [History] Enoxaparin [Lovenox] 100 mg SUBCUT DAILY 06/25/18 [History] Lisinopril 10 mg PO DAILY 06/25/18 [History] Metoprolol Succinate [Toprol XL] 25 mg PO DAILY 06/25/18 [History] Nystatin 100,000 unit PO QID 06/25/18 [History] Prochlorperazine Maleate [Compazine] 10 mg PO QID PRN 06/25/18 [History] Simethicone 80 mg PO QID PRN 06/25/18 [History] Past Medical History - Past Health History Medical/Surgical History: Denies Medical/Surgical History Cardiovascular History: Reports: CAD, Hypertension, LA, Stents Other Cardiovascular History: PAROXYSMAL SUPRAVENTRICULAR TACHYCARDIA Respiratory History: Reports: COPD Gastrointestinal History: Reports: GERD, Other (See Below) Other Gastrointestinal History: barretts esophagus Musculoskeletal History: Reports: Other (See Below) Other Musculoskeletal History: CLOSED FRACTURE OF NASAL BONES Psychiatric History: Reports: Other (See Below) Other Psychiatric History: PERSONAL HX OF TOBACCO USE. 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 He is unsure of the site, states that he thinks it's in the muscle. - Past Surgical History Cardiovascular Surgical History: Reports: Coronary Artery Stent GI Surgical History: Reports: Cholecystectomy, Colonoscopy Social & Family History - Family History Family Medical History: Noncontributory Cardiac: Reports: Other (See Below) Other Cardiac Family History: FAMILY HX ISCHEMIC HEART DISEASE - Caffeine Use Caffeine Use: Reports: Coffee ED ROS GENERAL - Review of Systems Review Of Systems: See Below Constitutional: Reports: No Symptoms HEENT: Reports: No Symptoms Respiratory: Reports: No Symptoms Cardiovascular: Reports: No Symptoms Endocrine: Reports: No Symptoms GI/Abdominal: Reports: No Symptoms, Decreased Appetite : Reports: No Symptoms Musculoskeletal: Reports: No Symptoms Skin: Reports: No Symptoms Neurological: Reports: No Symptoms Psychiatric: Reports: Anxiety Hematologic/Lymphatic: Reports: No Symptoms Immunologic: Reports: No Symptoms ED EXAM, GENERAL - Physical Exam Exam: See Below Exam Limited By: No Limitations General Appearance: Alert, WD/WN, No Apparent Distress Ears: Normal External Exam, Normal Canal, Hearing Grossly Normal, Normal TMs Nose: Normal Inspection, Normal Mucosa, No Blood Throat/Mouth: Normal Inspection, Normal Lips, Normal Teeth, Normal Gums, Normal Oropharynx, Normal Voice, No Airway Compromise Head: Atraumatic, Normocephalic Neck: Normal Inspection, Supple, Non-Tender, Full Range of Motion Respiratory/Chest: No Respiratory Distress, Lungs Clear, Normal Breath Sounds, No Accessory Muscle Use, Chest Non-Tender Cardiovascular: Normal Peripheral Pulses, Regular Rate, Rhythm, No Edema, No Gallop, No JVD, No Murmur, No Rub Peripheral Pulses: 4+: Radial (R) GI/Abdominal: Normal Bowel Sounds, Soft, Non-Tender, No Organomegaly, No Distention, No Abnormal Bruit, No Mass (Male) Exam: Deferred Rectal (Males) Exam: Deferred Back Exam: Normal Inspection, Full Range of Motion, NT Extremities: Normal Inspection, Normal Range of Motion, Non-Tender, Normal Capillary Refill, No Pedal Edema Neurological: Alert, Oriented, CN II-XII Intact, Normal Cognition, Normal Gait, Normal Reflexes, No Motor/Sensory Deficits Psychiatric: Normal Affect, Normal Mood Skin Exam: Warm, Dry, Intact, Normal Color, No Rash Course - Vital Signs Last Recorded V/S: Last Vital Signs Temp 36.7 C 08/05/18 19:23 Pulse 69 08/05/18 19:23 Resp 16 08/05/18 19:23 BP 110/39 L 08/05/18 19:23 Pulse Ox 99 08/05/18 19:23 - Orders/Labs/Meds Orders: Active Orders 24 hr Category Date Time Status Sodium Chloride 0.9% [Saline Flush] Med 08/05/18 19:33 Active 10 ml FLUSH ASDIRECTED PRN Peripheral IV Insertion Adult [OM.PC] Routine Oth 08/05/18 19:33 Ordered Medication Orders Sodium Chloride (Saline Flush) 10 ml FLUSH ASDIRECTED PRN PRN Reason: Keep Vein Open Meds: Medications Generic Name Dose Route Start Last Admin Trade Name Freq PRN Reason Stop Dose Admin Sodium Chloride 10 ml 08/05/18 19:33 Saline Flush FLUSH ASDIRECTED PRN Keep Vein Open Discontinued Medications Generic Name Dose Route Start Last Admin Trade Name Freq PRN Reason Stop Dose Admin Lactated Ringer's 1,000 mls @ 1,000 mls/hr 08/05/18 19:33 08/05/18 19:45 Ringers, Lactated IV 08/05/18 20:32 1,000 mls/hr ONETIME ONE Administration Lorazepam 0.5 mg 08/05/18 22:00 08/05/18 22:21 Ativan PO 08/05/18 22:01 0.5 mg ONETIME ONE Administration Ondansetron HCl 4 mg 08/05/18 19:33 08/05/18 19:47 Zofran IVPUSH 08/05/18 19:34 4 mg ONETIME ONE Administration Departure - Departure Time of Disposition: 22:30 Disposition: Home, Self-Care 01 Clinical Impression: Dehydration, Anxiety - Discharge Information Instructions: Dehydration, Adult, [id number] Referrals: Geovani Kelly PA-C [Primary Care Provider] - Forms: ED Department Discharge Additional Instructions: Home to rest. Continue with current medications. Follow-up in clinic as needed. - My Orders Last 24 Hours: My Active Orders 08/05/18 19:33 Sodium Chloride 0.9% [Saline Flush] 10 ml FLUSH ASDIRECTED PRN Peripheral IV Insertion Adult [OM.PC] Routine - Assessment/Plan Last 24 Hours: My Active Orders 08/05/18 19:33 Sodium Chloride 0.9% [Saline Flush] 10 ml FLUSH ASDIRECTED PRN Peripheral IV Insertion Adult [OM.PC] Routine Plan: Home to rest. Continue with current medications. Follow-up in clinic as needed.
== END 2018-08-05 22:30 | disposition home or self-care (01) ==
LOC: VM.ED 19:23
DX: E86.0 Dehydration (principal); F41.9 Anxiety disorder, unspecified; I10 Essential (primary) hypertension; I25.10 Atherosclerotic heart disease of native coronary artery without angina pectoris; J44.9 Chronic obstructive pulmonary disease, unspecified; Z79.899 Other long term (current) drug therapy
CPT/HCPCS: 96361; 96374; 99283; A9270; J2405; J7120

== ENCOUNTER 2018-08-09 07:26 | Observation (INO) | payer OTHER ==
[2018-08-09] MEDS ORDERED: Sodium Chloride 0.9% 10 ML Syringe FLUSH PRN (07:44)
[2018-08-09] MEDS ORDERED: Ondansetron 4 MG/2 ML SDV IVPUSH ONE (07:46)
[2018-08-09] MEDS ORDERED: Morphine 4 MG/ML Syringe IVPUSH ONE (07:46)
[2018-08-09 08:38] LABS: ANION GAP 11.6 mmol/L (10-20); CHLORIDE,CL 103 mmol/L (98-107); SODIUM,NA 137 mmol/L (136-145)
[2018-08-09] MEDS ORDERED: Iopamidol 612 MG/ML 100 ML Bottle IVPUSH ONE (08:49)
--- NOTE | 2018-08-09 08:59 | EDM.PDOC ---
ED HPI GENERAL MEDICAL PROBLEM - General Chief Complaint: Abdominal Pain Time Seen by Provider: 08/09/18 07:35 Source of Information: Reports: Patient History Limitations: Reports: No Limitations - History of Present Illness INITIAL COMMENTS - FREE TEXT/NARRATIVE: Pt. presents to ER with complaints of R upper quadrant abdominal pain. He states that the discomfort started last evening. Pt. has a history of metastatic esophageal cancer. Denies any chest pain or shortness of breath. No nausea or vomiting. He denies any trauma to the area. Denies any GI/esophageal bleeding today. Pt. is undergoing chemotherapy and has been tolerating this well. He recently had a cholecystectomy and recently has had an DE with stenting (LAD). He did have some CHF but states that he has not been having any issues with edema or chronic shortness of breath. He states that his stools have been very hard and he has been constipated. He states that he has noticed some bright red blood when he has wiped but states that this is not new for him. Denies any tarry or black stools. Denies any lightheadedness. No vertigo. Onset Date: 08/09/18 Location: Reports: Abdomen Quality: Reports: Ache, Burning, Sharp Right Abdomen Pain Score (Numeric/FACES): 6 - Related Data Allergies Allergy/AdvReac Type Severity Reaction Status Date / Time No Known Allergies Allergy Verified 08/09/18 07:51 Home Meds: Home Meds Sennosides/Docusate Sodium [Senna-S] 2 tab PO BID 04/22/18 [History] Varenicline Tartrate [Chantix] 1 mg PO BID 04/22/18 [History] Acetaminophen [Tylenol] 650 mg PO Q4H PRN 06/08/18 [History] Clopidogrel Bisulfate [Plavix] 75 mg PO DAILY 06/08/18 [History] Gabapentin [Neurontin] 300 mg PO TID 06/08/18 [History] HYDROmorphone [Dilaudid] 2 mg PO Q3H PRN 06/08/18 [History] Lidocaine 5% [Lidoderm 5%] 1 patch TOP DAILY 06/08/18 [History] Lidocaine/Prilocaine [EMLA Crm] 1 applic TOP ASDIRECTED 06/08/18 [History] Morphine Sulfate [Morphabond ER] 60 mg PO BID 06/08/18 [History] Multivitamin with Minerals [Multiple Vitamin] 1 tab PO DAILY 06/08/18 [History] Nitroglycerin [Nitrostat] 0.4 mg SL ASDIRECTED PRN 06/08/18 [History] Omeprazole 40 mg PO DAILY 06/08/18 [History] Polyethylene Glycol 3350 [MiraLAX] 17 gm PO DAILY 06/08/18 [History] Ranitidine [Zantac] 150 mg PO DAILY 06/08/18 [History] atorvaSTATin [Lipitor] 40 mg PO BEDTIME 06/08/18 [History] Calcium Carbonate [Calci-Chew] 500 mg PO TID 06/25/18 [History] Enoxaparin [Lovenox] 100 mg SUBCUT DAILY 06/25/18 [History] Lisinopril 10 mg PO DAILY 06/25/18 [History] Metoprolol Succinate [Toprol XL] 25 mg PO DAILY 06/25/18 [History] Nystatin 100,000 unit PO QID 06/25/18 [History] Prochlorperazine Maleate [Compazine] 10 mg PO QID PRN 06/25/18 [History] Simethicone 80 mg PO QID PRN 06/25/18 [History] Past Medical History - Past Health History Medical/Surgical History: Denies Medical/Surgical History Cardiovascular History: Reports: CAD, Hypertension, DE, Stents Other Cardiovascular History: PAROXYSMAL SUPRAVENTRICULAR TACHYCARDIA Respiratory History: Reports: COPD Gastrointestinal History: Reports: GERD, Other (See Below) Other Gastrointestinal History: barretts esophagus Musculoskeletal History: Reports: Other (See Below) Other Musculoskeletal History: CLOSED FRACTURE OF NASAL BONES Psychiatric History: Reports: Other (See Below) Other Psychiatric History: PERSONAL HX OF TOBACCO USE. 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 He is unsure of the site, states that he thinks it's in the muscle. - Past Surgical History Cardiovascular Surgical History: Reports: Coronary Artery Stent GI Surgical History: Reports: Cholecystectomy, Colonoscopy Social & Family History - Family History Family Medical History: Noncontributory Cardiac: Reports: Other (See Below) Other Cardiac Family History: FAMILY HX ISCHEMIC HEART DISEASE - Tobacco Use Smoking Status *Q: Unknown Ever Smoked - Caffeine Use Caffeine Use: Reports: Coffee ED ROS GENERAL - Review of Systems Review Of Systems: See Below Constitutional: Reports: No Symptoms HEENT: Reports: No Symptoms Respiratory: Reports: No Symptoms Cardiovascular: Reports: No Symptoms Endocrine: Reports: No Symptoms GI/Abdominal: Reports: Abdominal Pain, Nausea. Denies: Hematochezia, Melena : Reports: No Symptoms Musculoskeletal: Reports: No Symptoms Skin: Reports: No Symptoms Neurological: Reports: No Symptoms Psychiatric: Reports: No Symptoms Hematologic/Lymphatic: Reports: No Symptoms Immunologic: Reports: No Symptoms ED EXAM, GENERAL - Physical Exam Exam: See Below Exam Limited By: No Limitations General Appearance: Alert, WD/WN, No Apparent Distress Respiratory/Chest: No Respiratory Distress, Lungs Clear, Normal Breath Sounds, No Accessory Muscle Use, Chest Non-Tender Cardiovascular: Normal Peripheral Pulses, Regular Rate, Rhythm, No Edema, No Gallop, No JVD, No Murmur, No Rub Peripheral Pulses: 4+: Radial (L) GI/Abdominal: Normal Bowel Sounds, Soft, Non-Tender, No Organomegaly, No Distention, No Mass, Guarding, Tender. No: Rigid, Rebound (Male) Exam: Deferred Rectal (Males) Exam: Deferred Back Exam: Normal Inspection, Full Range of Motion Extremities: Normal Inspection, Normal Range of Motion, Non-Tender Neurological: Alert, Oriented, CN II-XII Intact, Normal Cognition, Normal Gait, Normal Reflexes, No Motor/Sensory Deficits Psychiatric: Normal Affect, Normal Mood Course - Vital Signs Last Recorded V/S: Last Vital Signs Temp 36.6 C 08/09/18 07:35 Pulse 76 08/09/18 07:35 Resp 18 08/09/18 07:35 BP 136/65 08/09/18 07:35 Pulse Ox 99 08/09/18 07:35 - Orders/Labs/Meds Orders: Active Orders 24 hr Category Date Time Status Patient Status [ADT] Routine ADT 08/09/18 10:28 Active UA W/MICROSCOPIC [URIN] Stat Lab 08/09/18 07:45 Ordered Sodium Chloride 0.9% [Saline Flush] Med 08/09/18 07:44 Active 10 ml FLUSH ASDIRECTED PRN Sodium Chloride 0.9% [Saline Flush] Med 08/09/18 07:47 Active 10 ml FLUSH ASDIRECTED PRN Peripheral IV Insertion Adult [OM.PC] Routine Oth 08/09/18 07:44 Ordered Peripheral IV Insertion Adult [OM.PC] Routine Oth 08/09/18 07:47 Ordered Medication Orders Sodium Chloride (Saline Flush) 10 ml FLUSH ASDIRECTED PRN PRN Reason: Keep Vein Open Sodium Chloride (Saline Flush) 10 ml FLUSH ASDIRECTED PRN PRN Reason: Keep Vein Open Labs: Laboratory Tests 08/09/18 08/09/18 08/09/18 Range/Units 08:01 08:01 08:01 WBC 5.0 (4.0-10.0) x10^3/uL RBC 3.11 L (4.5-6.0) x10^6/uL Hgb 9.1 L (14.0-18.0) g/dL Hct 28.7 L (40.0-52.0) % MCV 92.3 (78.0-93.0) fL MCH 29.3 (26.0-32.0) pg MCHC 31.7 L (32.0-36.0) g/dL RDW Coeff of Saritha 16.3 H (10.0-15.0) % Plt Count 208 (130-400) x10^3/uL Neut % (Auto) 79.0 (50.0-80.0) % Lymph % (Auto) 14.4 L (25.0-50.0) % [place] % (Auto) 5.6 (2.0-11.0) % Eos % (Auto) 0.8 (0.0-4.0) % Baso % (Auto) 0.2 (0.2-1.2) % PT 11.7 (10.0-12.8) SEC INR 1.0 L (2.0-3.5) Sodium 137 (136-145) mmol/L Potassium 3.6 (3.5-5.1) mmol/L Chloride 103 (98-107) mmol/L Carbon Dioxide 26 (21-32) mmol/L Anion Gap 11.6 (10-20) mmol/L BUN 6 L (7-18) mg/dL Creatinine 0.5 L (0.70-1.30) mg/dL Est Cr Clr Drug Dosing TNP Estimated GFR (MDRD) > 60 Glucose 91 (74-106) mg/dL Lactic Acid (0.4-2.0) mmol/L Calcium 7.7 L (8.5-10.1) mg/dL Corrected Calcium 9.06 (8.5-10.1) mg/dL Phosphorus 2.5 L (2.6-4.7) mg/dL Magnesium 1.6 L (1.8-2.4) mg/dL Total Bilirubin 0.5 (0.2-1.0) mg/dL AST 13 L (15-37) U/L ALT 10 L (16-63) U/L Alkaline Phosphatase 86 (46-116) U/L C-Reactive Protein 6.7 H (<=0.9) mg/dL Total Protein 6.2 L (6.4-8.2) g/dL Albumin 2.3 L (3.4-5.0) g/dL Globulin 3.9 Albumin/Globulin Ratio 0.59 Amylase (25-115) U/L Lipase (73-393) U/L 08/09/18 08/09/18 Range/Units 08:01 09:47 WBC (4.0-10.0) x10^3/uL RBC (4.5-6.0) x10^6/uL Hgb (14.0-18.0) g/dL Hct (40.0-52.0) % MCV (78.0-93.0) fL MCH (26.0-32.0) pg MCHC (32.0-36.0) g/dL RDW Coeff of Saritha (10.0-15.0) % Plt Count (130-400) x10^3/uL Neut % (Auto) (50.0-80.0) % Lymph % (Auto) (25.0-50.0) % [place] % (Auto) (2.0-11.0) % Eos % (Auto) (0.0-4.0) % Baso % (Auto) (0.2-1.2) % PT (10.0-12.8) SEC INR (2.0-3.5) Sodium (136-145) mmol/L Potassium (3.5-5.1) mmol/L Chloride (98-107) mmol/L Carbon Dioxide (21-32) mmol/L Anion Gap (10-20) mmol/L BUN (7-18) mg/dL Creatinine (0.70-1.30) mg/dL Est Cr Clr Drug Dosing Estimated GFR (MDRD) Glucose (74-106) mg/dL Lactic Acid 0.9 (0.4-2.0) mmol/L Calcium (8.5-10.1) mg/dL Corrected Calcium (8.5-10.1) mg/dL Phosphorus (2.6-4.7) mg/dL Magnesium (1.8-2.4) mg/dL Total Bilirubin (0.2-1.0) mg/dL AST (15-37) U/L ALT (16-63) U/L Alkaline Phosphatase (46-116) U/L C-Reactive Protein (<=0.9) mg/dL Total Protein (6.4-8.2) g/dL Albumin (3.4-5.0) g/dL Globulin Albumin/Globulin Ratio Amylase 29 (25-115) U/L Lipase 85 (73-393) U/L Meds: Medications Generic Name Dose Route Start Last Admin Trade Name Freq PRN Reason Stop Dose Admin Sodium Chloride 10 ml 08/09/18 07:44 Saline Flush FLUSH ASDIRECTED PRN Keep Vein Open Sodium Chloride 10 ml 08/09/18 07:47 Saline Flush FLUSH ASDIRECTED PRN Keep Vein Open Discontinued Medications Generic Name Dose Route Start Last Admin Trade Name Freq PRN Reason Stop Dose Admin Hydromorphone HCl 1 mg 08/09/18 09:49 08/09/18 09:57 Dilaudid IVPUSH 08/09/18 09:50 1 mg ONETIME ONE Administration Iopamidol 100 ml 08/09/18 08:49 08/09/18 09:01 Isovue-300 (61%) IVPUSH 08/09/18 08:50 100 ml ONETIME ONE Administration Morphine Sulfate 4 mg 08/09/18 07:46 08/09/18 08:12 Morphine IVPUSH 08/09/18 07:47 4 mg ONETIME ONE Administration Ondansetron HCl 4 mg 08/09/18 07:46 08/09/18 08:09 Zofran IVPUSH 08/09/18 07:47 4 mg ONETIME ONE Administration - Radiology Interpretation Free Text/Narrative:: Peripancreatic fat stranding consistent with acute uncomplicated pancreatitis. No abscess. No splenic vein thrombosis or splenic artery aneurysm. Departure - Departure Time of Disposition: 10:38 Disposition: Refer to Observation Clinical Impression: Esophageal neoplasm, Pancreatitis - Discharge Information - My Orders Last 24 Hours: My Active Orders 08/09/18 07:44 Sodium Chloride 0.9% [Saline Flush] 10 ml FLUSH ASDIRECTED PRN Peripheral IV Insertion Adult [OM.PC] Routine 08/09/18 07:45 UA W/MICROSCOPIC [URIN] Stat 08/09/18 07:47 Sodium Chloride 0.9% [Saline Flush] 10 ml FLUSH ASDIRECTED PRN Peripheral IV Insertion Adult [OM.PC] Routine 08/09/18 10:28 Patient Status [ADT] Routine - Assessment/Plan Admission H&P: Please use this note as an admission H&P Last 24 Hours: My Active Orders 08/09/18 07:44 Sodium Chloride 0.9% [Saline Flush] 10 ml FLUSH ASDIRECTED PRN Peripheral IV Insertion Adult [OM.PC] Routine 08/09/18 07:45 UA W/MICROSCOPIC [URIN] Stat 08/09/18 07:47 Sodium Chloride 0.9% [Saline Flush] 10 ml FLUSH ASDIRECTED PRN Peripheral IV Insertion Adult [OM.PC] Routine 08/09/18 10:28 Patient Status [ADT] Routine Plan: Will admit patient observation for pain control. His pancreatic enzymes were normal. Will repeat these in the AM. The discomfort he is experiencing is likely secondary to the liver mets. I did speak with Dr. 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 Discussed code status with patient. He wishes to be code 1 at this point and states that he will discuss this with his oncologist.
--- NOTE | 2018-08-09 09:46 | CT ---
[id number] CT/CT Chest Abdomen Pelvis W IV EXAM: CT Chest Abdomen Pelvis W IV CLINICAL DATA: ABD PAIN COMPARISON STUDY: None. FINDINGS: No pleural effusion, pneumothorax, or pulmonary contusion. No parenchymal airspace consolidation. No pneumomediastinum. No pericardial effusion. Numerous enlarged mediastinal and hilar lymph nodes. For example there is an AP window lymph node measuring 1.0 cm in short axis (series 2 image 36). There is a right hilar lymph node measuring 1.4 cm in short axis (series 2 image 45). Abdomen and pelvis: 2.5 cm hypodense lesion within the right hepatic lobe (series 2 image 86). Additionally there is an ill-defined area of hypodensity within the left hepatic lobe measuring up to 2.0 cm (series 2 image 86). No other lesions are definitely identified. The gallbladder surgically absent. Numerous enlarged lymph nodes in the region of the edouard hepatis for example there is a 1.3 cm lymph node (series 2 image 97). Additionally there are multiple prominent retroperitoneal lymph nodes. For example there is a right pericaval node measuring 1.1 cm in short axis (series 2 image 125). There is subtle peripancreatic fat stranding. No fluid collection. No splenic vein thrombosis. No splenic artery aneurysm. The adrenal glands and spleen are unremarkable. Small right renal cysts kidneys are otherwise unremarkable. Circumferential wall thickening of the colon likely related to underdistention. The appendix is visualized and appears normal. Urinary bladder is intact. Bones and soft tissues: Numerous sclerotic lesions seen throughout the visualized osseous structures. IMPRESSION: 1. Peripancreatic fat stranding consistent with acute uncomplicated pancreatitis. Correlation with lipase is recommended. No fluid collections. 2. Metastatic disease seen throughout the liver, osseous structures as well as kelsey metastatic disease within chest, abdomen and pelvis. Abimael Eid DO 08/09/18 0945 Thank you for allowing us to participate in the care of your patient.
[2018-08-09] MEDS ORDERED: HYDROmorphone 1 MG/ML Syringe IVPUSH ONE (09:49)
[2018-08-09] MEDS ORDERED: Prochlorperazine 5 MG Tab PO PRN (12:16)
[2018-08-09] MEDS ORDERED: Acetaminophen 325 MG Tab PO PRN (12:16)
[2018-08-09] MEDS ORDERED: Lidocaine/Prilocaine 2.5-2.5% Crm 5 GM Tube TOP SCH (12:30)
[2018-08-09] MEDS: Morphine 30 MG Tab.ER PO SCH ×2 (12:56→19:57)
[2018-08-09] MEDS: Sodium Chloride 0.9% 10 ML Syringe FLUSH PRN ×3 (12:56→22:44)
[2018-08-09] MEDS: HYDROmorphone 1 MG/ML Syringe IVPUSH PRN ×3 (12:56→22:40)
[2018-08-09] MEDS: Calcium Carbonate 1,250 MG/5 ML Susp 5 ML UD Cup PO SCH ×2 (13:03→19:58)
[2018-08-09] MEDS: Gabapentin 300 MG Cap PO SCH ×2 (13:03→19:57)
[2018-08-09] MEDS: Enoxaparin 100 MG/1 ML Syringe SUBCUT SCH (13:23)
[2018-08-09] MEDS: Lactated Ringers 1,000 ML IV SCH ×2 (15:27→22:44)
[2018-08-09] MEDS: HYDROmorphone 2 MG Tab PO PRN ×2 (15:28→19:59)
[2018-08-09] MEDS ORDERED: LORazepam 1 MG Tab PO ONE ×2 (19:14→21:45)
[2018-08-09] MEDS: Famotidine 20 MG Tab PO SCH (19:58)
[2018-08-09] MEDS: atorvaSTATin 40 MG Tab PO SCH (19:58)
[2018-08-09] MEDS: Lisinopril 20 MG Tab PO SCH (19:58)
[2018-08-10] MEDS: HYDROmorphone 1 MG/ML Syringe IVPUSH PRN ×5 (02:58→23:58)
[2018-08-10] MEDS: Sodium Chloride 0.9% 10 ML Syringe FLUSH PRN ×3 (02:59→23:56)
[2018-08-10] MEDS: Omeprazole 20 MG Cap.CR PO SCH (06:06)
[2018-08-10] MEDS: HYDROmorphone 2 MG Tab PO PRN ×3 (06:08→17:11)
[2018-08-10 07:27] LABS: CHLORIDE,CL 103 mmol/L (98-107); SODIUM,NA 137 mmol/L (136-145)
[2018-08-10 07:28] LABS: ANION GAP 11.6 mmol/L (10-20)
[2018-08-10] MEDS ORDERED: Sodium Chloride 0.9% 10 ML Syringe FLUSH SCH (08:00)
[2018-08-10] MEDS: Calcium Carbonate 1,250 MG/5 ML Susp 5 ML UD Cup PO SCH ×3 (08:06→19:25)
[2018-08-10] MEDS: Clopidogrel 75 MG Tab PO SCH (08:06)
[2018-08-10] MEDS: Enoxaparin 100 MG/1 ML Syringe SUBCUT SCH (08:06)
[2018-08-10] MEDS: Lidocaine 4% 1 each Patch TOP SCH (08:06)
[2018-08-10] MEDS: Multivitamins with Iron/Calcium/Folic Acid/Minerals Tab PO SCH (08:07)
[2018-08-10] MEDS: Morphine 30 MG Tab.ER PO SCH ×2 (08:07→19:28)
[2018-08-10] MEDS: Famotidine 20 MG Tab PO SCH ×2 (08:07→19:27)
[2018-08-10] MEDS: Gabapentin 300 MG Cap PO SCH ×3 (08:07→19:25)
[2018-08-10] MEDS: Lactated Ringers 1,000 ML IV SCH (11:28)
--- NOTE | 2018-08-10 12:59 | PCM.DCSUM1 ---
Discharge Summary - Hospital Course Brief History: Patient admitted yesterday with severe abdominal pain, nausea, and vomiting. CT of abdomen/pelvis showed some fat stranding around the pancreas. History of metastatic esophageal cancer with mets to the liver. Treated as pancreatitis though pancreatic enzymes normal. Will infuse 8 mg dexamethasone, plan for discharge post infusion. Diagnosis: Stroke: No Modified Jaycee Scale: No Symptoms at All Modified Liberty Scale Score: 0 - Discharge Data Discharge Date: 08/10/18 Discharge Disposition: Home, Self-Care 01 Condition: Good - Discharge Diagnosis/Problem(s) (1) Pancreatitis SNOMED Code(s): 04404358 ICD Code: K85.90 - ACUTE PANCREATITIS WITHOUT NECROSIS OR INFECTION, UNSP Status: Acute Current Visit: Yes Qualifiers: Chronicity: acute Pancreatitis type: other Acute pancreatitis complication: no infection or necrosis Qualified Code(s): K85.80 - Other acute pancreatitis without necrosis or infection - Patient Instructions Diet: Usual Diet as Tolerated - Discharge Plan *PRESCRIPTION DRUG MONITORING PROGRAM REVIEWED*: No *COPY OF PRESCRIPTION DRUG MONITORING REPORT IN PATIENT EVELYN: No Home Medications: Home Meds Sennosides/Docusate Sodium [Senna-S] 2 tab PO BID 04/22/18 [History] Varenicline Tartrate [Chantix] 1 mg PO BID 04/22/18 [History] Acetaminophen [Tylenol] 650 mg PO Q4H PRN 06/08/18 [History] Clopidogrel Bisulfate [Plavix] 75 mg PO DAILY 06/08/18 [History] Gabapentin [Neurontin] 300 mg PO TID 06/08/18 [History] HYDROmorphone [Dilaudid] 2 mg PO Q3H PRN 06/08/18 [History] Lidocaine 5% [Lidoderm 5%] 1 patch TOP DAILY 06/08/18 [History] Lidocaine/Prilocaine [EMLA Crm] 1 applic TOP ASDIRECTED 06/08/18 [History] Morphine Sulfate [Morphabond ER] 30 mg PO Q12H 06/08/18 [History] Multivitamin with Minerals [Multiple Vitamin] 1 tab PO DAILY 06/08/18 [History] Nitroglycerin [Nitrostat] 0.4 mg SL ASDIRECTED PRN 06/08/18 [History] Omeprazole 40 mg PO DAILY 06/08/18 [History] Polyethylene Glycol 3350 [MiraLAX] 17 gm PO DAILY 06/08/18 [History] Ranitidine [Zantac] 150 mg PO BID 06/08/18 [History] atorvaSTATin [Lipitor] 40 mg PO BEDTIME 06/08/18 [History] Calcium Carbonate [Calci-Chew] 500 mg PO TID 06/25/18 [History] Enoxaparin [Lovenox] 200 mg SUBCUT DAILY 06/25/18 [History] Lisinopril 20 mg PO BEDTIME 06/25/18 [History] Metoprolol Succinate [Toprol XL] 25 mg PO DAILY 06/25/18 [History] Nystatin 100,000 unit PO QID 06/25/18 [History] Prochlorperazine Maleate [Compazine] 10 mg PO QID PRN 06/25/18 [History] Simethicone 80 mg PO QID PRN 06/25/18 [History] Psyllium Husk [Metamucil] 660 gm PO BID 08/09/18 [History] Forms: ED Department Discharge Referrals: Geovani Kelly PA-C [Primary Care Provider] - - Discharge Summary/Plan Comment DC Time >30 min.: Yes Discharge Summary/Plan Comment: Discharge home on increased MS contin 30 mg TID rather than BID. Also give zofran 4 mg every 6 hours prn nausea. 8 mg dexamethasone infusion today prior to discharge. - General Info Date of Service: 08/10/18 Admission Dx/Problem (Free Text: Pancreatitis Functional Status: Reports: Pain Controlled - Review of Systems General: Reports: No Symptoms HEENT: Reports: No Symptoms Pulmonary: Reports: No Symptoms Cardiovascular: Reports: No Symptoms Gastrointestinal: Reports: Constipation (chronic, likely secondary to opioid use ), Nausea (improved since yesterday) Genitourinary: Reports: No Symptoms Musculoskeletal: Reports: No Symptoms Skin: Reports: No Symptoms Neurological: Reports: No Symptoms Psychiatric: Reports: No Symptoms - Patient Data Vitals - Most Recent: Last Vital Signs Temp 36.6 C 08/10/18 10:00 Pulse 72 08/10/18 10:00 Resp 20 08/10/18 10:00 BP 119/54 L 08/10/18 10:00 Pulse Ox 99 08/10/18 10:00 Weight - Most Recent: 130.181 kg I&O - Last 24 hours: Intake & Output 08/09/18 08/10/18 08/10/18 22:59 06:59 14:59 Intake Total 1524 Output Total 750 625 Balance 774 -625 Lab Results - Last 24 hrs: Laboratory Results - last 24 hr 08/09/18 08/10/18 08/10/18 Range/Units 08:01 06:42 06:42 WBC 4.0 (4.0-10.0) x10^3/uL RBC 2.94 L (4.5-6.0) x10^6/uL Hgb 8.5 L (14.0-18.0) g/dL Hct 27.2 L (40.0-52.0) % MCV 92.5 (78.0-93.0) fL MCH 28.9 (26.0-32.0) pg MCHC 31.3 L (32.0-36.0) g/dL RDW Coeff of Saritha 16.1 H (10.0-15.0) % Plt Count 177 (130-400) x10^3/uL Neut % (Auto) 60.3 (50.0-80.0) % Lymph % (Auto) 25.3 (25.0-50.0) % Starr % (Auto) 11.8 H (2.0-11.0) % Eos % (Auto) 1.8 (0.0-4.0) % Baso % (Auto) 0.8 (0.2-1.2) % Sodium 137 (136-145) mmol/L Potassium 3.6 (3.5-5.1) mmol/L Chloride 103 (98-107) mmol/L Carbon Dioxide 26 (21-32) mmol/L Anion Gap 11.6 (10-20) mmol/L BUN 5 L (7-18) mg/dL Creatinine 0.6 L (0.70-1.30) mg/dL Est Cr Clr Drug Dosing 160.91 mL/min Estimated GFR (MDRD) > 60 Glucose 88 (74-106) mg/dL Calcium 7.6 L (8.5-10.1) mg/dL Corrected Calcium 9.12 (8.5-10.1) mg/dL Total Bilirubin 0.3 (0.2-1.0) mg/dL AST 10 L (15-37) U/L ALT 8 L (16-63) U/L Alkaline Phosphatase 79 (46-116) U/L Total Protein 5.7 L (6.4-8.2) g/dL Albumin 2.1 L (3.4-5.0) g/dL Globulin 3.6 Albumin/Globulin Ratio 0.58 Amylase 29 26 (25-115) U/L Lipase 85 74 (73-393) U/L Med Orders - Current: Current Medications Acetaminophen (Tylenol) 650 mg PO Q4H PRN PRN Reason: mild pain Last Admin: 08/09/18 15:27 Dose: 650 mg Atorvastatin Calcium (Lipitor) 40 mg PO BEDTIME [facility] Last Admin: 08/09/18 19:58 Dose: 40 mg Calcium Carbonate/Glycine (Calcium Carbonate 250 Mg/Ml Susp) 1,250 mg PO TID [facility] Last Admin: 08/10/18 12:08 Dose: 1,250 mg Clopidogrel Bisulfate (Plavix) 75 mg PO DAILY [facility] Last Admin: 08/10/18 08:06 Dose: 75 mg Enoxaparin Sodium (Lovenox) 200 mg SUBCUT DAILY [facility] Last Admin: 08/10/18 08:06 Dose: 200 mg Famotidine (Pepcid) 20 mg PO BID [facility] Last Admin: 08/10/18 08:07 Dose: 20 mg Gabapentin (Neurontin) 300 mg PO TID [facility] Last Admin: 08/10/18 12:08 Dose: 300 mg Hydromorphone HCl (Dilaudid) 1 mg IVPUSH Q4H PRN PRN Reason: Pain (severe 7-10) Last Admin: 08/10/18 08:07 Dose: 1 mg Hydromorphone HCl (Dilaudid) 2 mg PO Q3H PRN PRN Reason: moderate to severe pain Last Admin: 08/10/18 12:08 Dose: 2 mg Lactated Ringer's (Ringers, Lactated) 1,000 mls @ 100 mls/hr IV ASDIRECTED [facility] Last Admin: 08/10/18 11:28 Dose: 100 mls/hr Lidocaine (Aspercreme 4%) 1 each TOP DAILY [facility] Last Admin: 08/10/18 08:06 Dose: Not Given Lidocaine/Prilocaine (Emla Crm) 0 gm TOP ASDIRECTED [facility] Lisinopril (Prinivil) 20 mg PO BEDTIME [facility] Last Admin: 08/09/18 19:58 Dose: 20 mg Morphine Sulfate (Ms Contin) 30 mg PO BID [facility] Last Admin: 08/10/18 08:07 Dose: 30 mg Multivitamins/Minerals (Thera M Plus) 1 tab PO DAILY [facility] Last Admin: 08/10/18 08:07 Dose: 1 tab Omeprazole (Omeprazole) 40 mg PO DAILY@0700 [facility] Last Admin: 08/10/18 06:06 Dose: 40 mg Prochlorperazine Maleate (Compazine) 10 mg PO QID PRN PRN Reason: Nausea/Vomiting Last Admin: 08/10/18 08:06 Dose: 10 mg Senna/Docusate Sodium (Senna Plus) 2 tab PO BID [facility] Last Admin: 08/10/18 08:06 Dose: 2 tab Sodium Chloride (Saline Flush) 10 ml FLUSH ASDIRECTED PRN PRN Reason: Keep Vein Open Last Admin: 08/10/18 08:07 Dose: 10 ml Discontinued Medications Hydromorphone HCl (Dilaudid) 1 mg IVPUSH ONETIME ONE Stop: 08/09/18 09:50 Last Admin: 08/09/18 09:57 Dose: 1 mg Iopamidol (Isovue-300 (61%)) 100 ml IVPUSH ONETIME ONE Stop: 08/09/18 08:50 Last Admin: 08/09/18 09:01 Dose: 100 ml Lorazepam (Ativan) 2 mg PO ONETIME ONE Stop: 08/09/18 19:15 Last Admin: 08/09/18 22:39 Dose: Not Given Lorazepam (Ativan) 2 mg PO ONETIME ONE Stop: 08/09/18 21:46 Last Admin: 08/09/18 22:40 Dose: 2 mg Morphine Sulfate (Morphine) 4 mg IVPUSH ONETIME ONE Stop: 08/09/18 07:47 Last Admin: 08/09/18 08:12 Dose: 4 mg Ondansetron HCl (Zofran) 4 mg IVPUSH ONETIME ONE Stop: 08/09/18 07:47 Last Admin: 08/09/18 08:09 Dose: 4 mg Sodium Chloride (Saline Flush) 10 - 20 ml FLUSH BID [facility] - Exam General: Reports: Alert, Oriented, Cooperative, No Acute Distress HEENT: Reports: Pupils Equal, Pupils Reactive, EOMI Neck: Reports: Supple Lungs: Reports: Clear to Auscultation, Normal Respiratory Effort Cardiovascular: Reports: Regular Rate, Regular Rhythm GI/Abdominal Exam: Normal Bowel Sounds, Soft, Non-Tender, No Organomegaly, No Distention Back Exam: Reports: Normal Inspection, Full Range of Motion Extremities: Normal Inspection, Normal Range of Motion, Non-Tender, No Pedal Edema, Normal Capillary Refill Skin: Reports: Warm, Dry, Intact, Other (slight jaundice) Neurological: Reports: No New Focal Deficit Psy/Mental Status: Reports: Alert, Normal Affect, Normal Mood
[2018-08-10] MEDS ORDERED: Ondansetron 4 MG/2 ML SDV IVPUSH ONE (14:05)
[2018-08-10] MEDS ORDERED: Dexamethasone 4 MG/ML SDV IVPUSH ONE (14:06)
[2018-08-10] MEDS ORDERED: DEXAMETHASONE IV ONE (14:15)
[2018-08-10] MEDS ORDERED: SODIUM CHLORIDE 0.9% IV ONE (14:15)
[2018-08-10] MEDS: atorvaSTATin 40 MG Tab PO SCH (19:26)
[2018-08-10] MEDS: Lisinopril 20 MG Tab PO SCH (19:27)
[2018-08-10] MEDS ORDERED: LORazepam 1 MG Tab PO ONE (19:45)
[2018-08-11] MEDS: HYDROmorphone 2 MG Tab PO PRN (03:55)
[2018-08-11] MEDS: Omeprazole 20 MG Cap.CR PO SCH (06:16)
[2018-08-11] MEDS: Enoxaparin 100 MG/1 ML Syringe SUBCUT SCH (07:56)
[2018-08-11] MEDS: Multivitamins with Iron/Calcium/Folic Acid/Minerals Tab PO SCH (07:57)
[2018-08-11] MEDS: Morphine 30 MG Tab.ER PO SCH (07:57)
[2018-08-11] MEDS: Calcium Carbonate 1,250 MG/5 ML Susp 5 ML UD Cup PO SCH (07:57)
[2018-08-11] MEDS: Clopidogrel 75 MG Tab PO SCH (07:57)
[2018-08-11] MEDS: Famotidine 20 MG Tab PO SCH (07:57)
[2018-08-11] MEDS: Gabapentin 300 MG Cap PO SCH (07:58)
[2018-08-11] MEDS: Lidocaine 4% 1 each Patch TOP SCH (08:05)
[2018-08-11] MEDS: HYDROmorphone 1 MG/ML Syringe IVPUSH PRN (08:05)
[2018-08-11 11:07] VITALS: BP 109/46
== END 2018-08-11 12:00 | disposition home or self-care (01) ==
LOC: VM.ED 07:26 → VM.MS 10:28 → UNDOADMOB 10:35
PROVIDERS: ADMIT Physician Assistant; ATTEND Physician Assistant
DX: K85.80 Other acute pancreatitis without necrosis or infection (principal); C15.9 Malignant neoplasm of esophagus, unspecified; C78.7 Secondary malignant neoplasm of liver and intrahepatic bile duct; I11.0 Hypertensive heart disease with heart failure; I50.9 Heart failure, unspecified; I25.10 Atherosclerotic heart disease of native coronary artery without angina pectoris; I25.2 Old myocardial infarction; J44.9 Chronic obstructive pulmonary disease, unspecified; K21.9 Gastro-esophageal reflux disease without esophagitis; Z87.891 Personal history of nicotine dependence; Z95.5 Presence of coronary angioplasty implant and graft; Z79.02 Long term (current) use of antithrombotics/antiplatelets; Z79.891 Long term (current) use of opiate analgesic; Z79.899 Other long term (current) drug therapy
CPT/HCPCS: 36415; 71260; 74177; 80053; 81001; 82150; 83605; 83690; 83735; 84100; 85025; 85610; 86140; 96361; 96365; 96366; 96372; 96374; 96375; 96376; 99285-25; A9270-GY; G0378; J1100; J1170; J1650; J2270; J2405; J7030; J7120; Q0164; Q9967

== ENCOUNTER 2018-08-14 19:53 | Emergency (ER) | payer OTHER ==
[2018-08-14] MEDS ORDERED: HYDROmorphone 1 MG/ML Syringe IM ONE (20:10)
[2018-08-14 20:19] VITALS: BP 97/47
--- NOTE | 2018-08-16 06:36 | EDM.PDOC ---
ED HPI GENERAL MEDICAL PROBLEM - General Chief Complaint: Abdominal Pain Stated Complaint: Upper abdominal pain, CA pain Time Seen by Provider: 08/14/18 20:05 Source of Information: Reports: Patient History Limitations: Reports: No Limitations - History of Present Illness INITIAL COMMENTS - FREE TEXT/NARRATIVE: Pt. has a history of metastatic esophageal cancer. Pt. presents to ER with complaints of abdominal pain. Pt. is currently taking ms contin 30mg BID and dilaudid 2 mg orally as needed for pain. He states that he has only taken 2 dilaudid today, the last dose several hours ago. Pt. has been seen in ER numerous times and was recently admitted to the hospital for pain control. Pt. states that the discomfort is not any different from normal. During his last hospitalization, he had a CT of the abdomen with did not reveal any acute cause to his abdominal pain. Onset Date: 08/14/18 Location: Reports: Abdomen Upper abdomen Pain Score (Numeric/FACES): 7 - Related Data Allergies Allergy/AdvReac Type Severity Reaction Status Date / Time No Known Allergies Allergy Verified 08/14/18 20:18 Home Meds: Home Meds Sennosides/Docusate Sodium [Senna-S] 2 tab PO BID 04/22/18 [History] Varenicline Tartrate [Chantix] 1 mg PO BID 04/22/18 [History] Acetaminophen [Tylenol] 650 mg PO Q4H PRN 06/08/18 [History] Clopidogrel Bisulfate [Plavix] 75 mg PO DAILY 06/08/18 [History] Gabapentin [Neurontin] 300 mg PO TID 06/08/18 [History] HYDROmorphone [Dilaudid] 2 mg PO Q3H PRN 06/08/18 [History] Lidocaine 5% [Lidoderm 5%] 1 patch TOP DAILY 06/08/18 [History] Lidocaine/Prilocaine [EMLA Crm] 1 applic TOP ASDIRECTED 06/08/18 [History] Morphine Sulfate [Morphabond ER] 30 mg PO Q12H 06/08/18 [History] Multivitamin with Minerals [Multiple Vitamin] 1 tab PO DAILY 06/08/18 [History] Nitroglycerin [Nitrostat] 0.4 mg SL ASDIRECTED PRN 06/08/18 [History] Omeprazole 40 mg PO DAILY 06/08/18 [History] Polyethylene Glycol 3350 [MiraLAX] 17 gm PO DAILY 06/08/18 [History] Ranitidine [Zantac] 150 mg PO BID 06/08/18 [History] atorvaSTATin [Lipitor] 40 mg PO BEDTIME 06/08/18 [History] Calcium Carbonate [Calci-Chew] 500 mg PO TID 06/25/18 [History] Enoxaparin [Lovenox] 200 mg SUBCUT DAILY 06/25/18 [History] Lisinopril 20 mg PO BEDTIME 06/25/18 [History] Metoprolol Succinate [Toprol XL] 25 mg PO DAILY 06/25/18 [History] Nystatin 100,000 unit PO QID 06/25/18 [History] Prochlorperazine Maleate [Compazine] 10 mg PO QID PRN 06/25/18 [History] Simethicone 80 mg PO QID PRN 06/25/18 [History] Psyllium Husk [Metamucil] 660 gm PO BID 08/09/18 [History] Morphine Sulfate [Morphine Sulfate ER] 30 mg PO TID #30 tablet.er 08/10/18 [Rx] Ondansetron [Zofran ODT] 4 mg PO Q6H PRN #30 tab.dis 08/10/18 [Rx] Past Medical History - Past Health History Medical/Surgical History: Denies Medical/Surgical History Cardiovascular History: Reports: CAD, Hypertension, [place], Stents Other Cardiovascular History: PAROXYSMAL SUPRAVENTRICULAR TACHYCARDIA Respiratory History: Reports: COPD Gastrointestinal History: Reports: GERD, Other (See Below) Other Gastrointestinal History: barretts esophagus Musculoskeletal History: Reports: Other (See Below) Other Musculoskeletal History: CLOSED FRACTURE OF NASAL BONES Psychiatric History: Reports: Other (See Below) Other Psychiatric History: PERSONAL HX OF TOBACCO USE. 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 He is unsure of the site, states that he thinks it's in the muscle. - Past Surgical History Cardiovascular Surgical History: Reports: Coronary Artery Stent GI Surgical History: Reports: Cholecystectomy, Colonoscopy Social & Family History - Family History Family Medical History: Noncontributory Cardiac: Reports: Other (See Below) Other Cardiac Family History: FAMILY HX ISCHEMIC HEART DISEASE - Caffeine Use Caffeine Use: Reports: Coffee ED ROS GENERAL - Review of Systems Review Of Systems: See Below Constitutional: Reports: No Symptoms HEENT: Reports: No Symptoms Respiratory: Reports: No Symptoms Cardiovascular: Reports: No Symptoms Endocrine: Reports: No Symptoms GI/Abdominal: Reports: Abdominal Pain : Reports: No Symptoms Musculoskeletal: Reports: No Symptoms Skin: Reports: No Symptoms Neurological: Reports: No Symptoms Psychiatric: Reports: No Symptoms Hematologic/Lymphatic: Reports: No Symptoms ED EXAM, GENERAL - Physical Exam Exam: See Below Exam Limited By: No Limitations General Appearance: Alert, WD/WN, No Apparent Distress Nose: Normal Inspection, Normal Mucosa, No Blood Throat/Mouth: Normal Inspection, Normal Lips, Normal Teeth, Normal Gums, Normal Oropharynx, Normal Voice, No Airway Compromise Respiratory/Chest: No Respiratory Distress, Lungs Clear, Normal Breath Sounds, No Accessory Muscle Use, Chest Non-Tender Cardiovascular: Normal Peripheral Pulses, Regular Rate, Rhythm, No Edema, No Gallop, No JVD, No Murmur, No Rub Peripheral Pulses: 4+: Radial (L) GI/Abdominal: Normal Bowel Sounds, Soft, Non-Tender, No Organomegaly, No Distention (Male) Exam: Deferred Rectal (Males) Exam: Deferred Back Exam: Normal Inspection, Full Range of Motion Extremities: Normal Inspection, Normal Range of Motion, Non-Tender, No Pedal Edema, Normal Capillary Refill Skin Exam: Warm, Dry, Intact Course - Vital Signs Last Recorded V/S: Last Vital Signs Temp 36.2 C 08/14/18 20:05 Pulse 63 08/14/18 20:05 Resp 16 08/14/18 20:05 BP 97/47 L 08/14/18 20:05 Pulse Ox 97 08/14/18 20:05 - Orders/Labs/Meds Meds: Medications Discontinued Medications Generic Name Dose Route Start Last Admin Trade Name Freq PRN Reason Stop Dose Admin Hydromorphone HCl 1 mg 08/14/18 20:10 08/14/18 20:20 Dilaudid IM 08/14/18 20:11 1 mg ONETIME ONE Administration Departure - Departure Time of Disposition: 20:30 Disposition: Home, Self-Care 01 Clinical Impression: Esophageal cancer - Discharge Information Instructions: Chronic Pain, Adult, Hydromorphone tablets Referrals: Geovani Kelly PA-C [Primary Care Provider] - Forms: ED Department Discharge Additional Instructions: Continue with the MS contin every 12 hours. Take the dilaudid on a schedule. Make sure you are taking something every 4 hours. Do not wait for the pain to get severe before to take another. You can take take 2 tablets every 2-4 hours as needed. I would take a least 1 every 4 hours. Contact your oncologist on Thursday to discuss your pain medication. I think they need to adjust your long acting medication so you have better pain control. - Assessment/Plan Plan: Continue with the MS contin every 12 hours. Take the dilaudid on a schedule. Make sure you are taking something every 4 hours. Do not wait for the pain to get severe before to take another. You can take take 2 tablets every 2-4 hours as needed. I would take a least 1 every 4 hours. Contact your oncologist on Thursday to discuss your pain medication. I think they need to adjust your long acting medication so you have better pain control.
== END 2018-08-14 20:30 | disposition home or self-care (01) ==
LOC: VM.ED 19:53
DX: C15.9 Malignant neoplasm of esophagus, unspecified (principal); I10 Essential (primary) hypertension; I25.2 Old myocardial infarction; J44.9 Chronic obstructive pulmonary disease, unspecified; K21.9 Gastro-esophageal reflux disease without esophagitis; E66.9 Obesity, unspecified; Z68.36 Body mass index [BMI] 36.0-36.9, adult; Z79.899 Other long term (current) drug therapy; Z95.5 Presence of coronary angioplasty implant and graft
CPT/HCPCS: 96372; 99283; J1170

== ENCOUNTER 2018-08-28 07:33 | Emergency (ER) | payer OTHER ==
[2018-08-28] MEDS ORDERED: HYDROmorphone 1 MG/ML Syringe SUBCUT ONE (07:58)
[2018-08-28 08:48] VITALS: BP 125/81
[2018-08-28] MEDS ORDERED: Morphine 30 MG Tab.ER PO ONE (09:05)
--- NOTE | 2018-08-28 11:20 | EDM.PDOC ---
ED HPI GENERAL MEDICAL PROBLEM - General Chief Complaint: Back Pain or Injury Stated Complaint: ER VISIT Time Seen by Provider: 08/28/18 07:35 Source of Information: Reports: Patient History Limitations: Reports: No Limitations - History of Present Illness INITIAL COMMENTS - FREE TEXT/NARRATIVE: Pt. presents to ER with chronic pain and requests IV pain medication. He has a history of metastatic esophageal cancer. He has been in numerous times to ER stating that his pain medication is not helping. He is on MS contin 30mg every 8 hours and dilaudid 2 mg every 3 hours. He states that he last took any medication at 0400 this AM. He states that he has 4 dilaudid left. She states that the pain is similar to what he has experienced in the past. He had previously been on MS contin 90 mg BID but it was decreased after he received palliative chemotherapy. His last PET scan showed increased metastatic disease in the bone of the pelvis which is causing his discomfort. Onset: Today Onset Date: 08/28/18 Location: Reports: Back Quality: Reports: Ache, Sharp, Throbbing Severity: Severe Lower Back Pain Score (Numeric/FACES): 8 Middle Abdominal Pain Score (Numeric/FACES): 8 - Related Data Allergies Allergy/AdvReac Type Severity Reaction Status Date / Time No Known Allergies Allergy Verified 08/14/18 20:18 Home Meds: Home Meds Sennosides/Docusate Sodium [Senna-S] 2 tab PO BID 04/22/18 [History] Varenicline Tartrate [Chantix] 1 mg PO BID 04/22/18 [History] Acetaminophen [Tylenol] 650 mg PO Q4H PRN 06/08/18 [History] Clopidogrel Bisulfate [Plavix] 75 mg PO DAILY 06/08/18 [History] Gabapentin [Neurontin] 300 mg PO TID 06/08/18 [History] HYDROmorphone [Dilaudid] 2 mg PO Q3H PRN 06/08/18 [History] Lidocaine 5% [Lidoderm 5%] 1 patch TOP DAILY 06/08/18 [History] Lidocaine/Prilocaine [EMLA Crm] 1 applic TOP ASDIRECTED 06/08/18 [History] Morphine Sulfate [Morphabond ER] 30 mg PO Q12H 06/08/18 [History] Multivitamin with Minerals [Multiple Vitamin] 1 tab PO DAILY 06/08/18 [History] Nitroglycerin [Nitrostat] 0.4 mg SL ASDIRECTED PRN 06/08/18 [History] Omeprazole 40 mg PO DAILY 06/08/18 [History] Polyethylene Glycol 3350 [MiraLAX] 17 gm PO DAILY 06/08/18 [History] Ranitidine [Zantac] 150 mg PO BID 06/08/18 [History] atorvaSTATin [Lipitor] 40 mg PO BEDTIME 06/08/18 [History] Calcium Carbonate [Calci-Chew] 500 mg PO TID 06/25/18 [History] Enoxaparin [Lovenox] 200 mg SUBCUT DAILY 06/25/18 [History] Lisinopril 20 mg PO BEDTIME 06/25/18 [History] Metoprolol Succinate [Toprol XL] 25 mg PO DAILY 06/25/18 [History] Nystatin 100,000 unit PO QID 06/25/18 [History] Prochlorperazine Maleate [Compazine] 10 mg PO QID PRN 06/25/18 [History] Simethicone 80 mg PO QID PRN 06/25/18 [History] Psyllium Husk [Metamucil] 660 gm PO BID 08/09/18 [History] Morphine Sulfate [Morphine Sulfate ER] 30 mg PO TID #30 tablet.er 08/10/18 [Rx] Ondansetron [Zofran ODT] 4 mg PO Q6H PRN #30 tab.dis 08/10/18 [Rx] Past Medical History - Past Health History Medical/Surgical History: Denies Medical/Surgical History Cardiovascular History: Reports: CAD, Hypertension, [place], Stents Other Cardiovascular History: PAROXYSMAL SUPRAVENTRICULAR TACHYCARDIA Respiratory History: Reports: COPD Gastrointestinal History: Reports: GERD, Other (See Below) Other Gastrointestinal History: barretts esophagus Musculoskeletal History: Reports: Other (See Below) Other Musculoskeletal History: CLOSED FRACTURE OF NASAL BONES Psychiatric History: Reports: Other (See Below) Other Psychiatric History: PERSONAL HX OF TOBACCO USE. 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 He is unsure of the site, states that he thinks it's in the muscle. - Past Surgical History Cardiovascular Surgical History: Reports: Coronary Artery Stent GI Surgical History: Reports: Cholecystectomy, Colonoscopy Social & Family History - Family History Family Medical History: Noncontributory Cardiac: Reports: Other (See Below) Other Cardiac Family History: FAMILY HX ISCHEMIC HEART DISEASE - Tobacco Use Smoking Status *Q: Former Smoker Used Tobacco, but Quit: Yes Month/Year Tobacco Last Used: 2017 - Caffeine Use Caffeine Use: Reports: Coffee ED ROS GENERAL - Review of Systems Review Of Systems: See Below Constitutional: Reports: No Symptoms HEENT: Reports: No Symptoms Respiratory: Reports: No Symptoms Cardiovascular: Reports: No Symptoms Endocrine: Reports: No Symptoms GI/Abdominal: Reports: No Symptoms : Reports: No Symptoms Musculoskeletal: Reports: Back Pain Skin: Reports: No Symptoms Neurological: Reports: No Symptoms Psychiatric: Reports: No Symptoms Hematologic/Lymphatic: Reports: No Symptoms Immunologic: Reports: No Symptoms ED EXAM, GENERAL - Physical Exam Exam: See Below Exam Limited By: No Limitations General Appearance: Alert, WD/WN, No Apparent Distress Throat/Mouth: Normal Inspection, Normal Lips, Normal Teeth, Normal Gums, Normal Oropharynx, Normal Voice, No Airway Compromise Head: Atraumatic, Normocephalic Neck: Normal Inspection, Supple, Non-Tender, Full Range of Motion Respiratory/Chest: No Respiratory Distress, Lungs Clear, Normal Breath Sounds, No Accessory Muscle Use, Chest Non-Tender Cardiovascular: Normal Peripheral Pulses, Regular Rate, Rhythm, No Edema, No Gallop, No JVD, No Murmur, No Rub GI/Abdominal: Normal Bowel Sounds, Soft, Non-Tender, No Organomegaly, No Distention, No Abnormal Bruit, No Mass (Male) Exam: Deferred Rectal (Males) Exam: Deferred Back Exam: Normal Inspection, Full Range of Motion Extremities: Normal Inspection, Normal Range of Motion, Non-Tender, No Pedal Edema, Normal Capillary Refill Neurological: Alert, Oriented, CN II-XII Intact, Normal Cognition, Normal Gait, Normal Reflexes, No Motor/Sensory Deficits Psychiatric: Normal Affect, Normal Mood Course - Vital Signs Last Recorded V/S: Last Vital Signs Temp 36.3 C 08/28/18 07:35 Pulse 74 08/28/18 07:35 Resp 16 06/08/19 07:35 BP 125/81 08/28/18 07:35 Pulse Ox 95 08/28/18 07:35 - Orders/Labs/Meds Meds: Medications Discontinued Medications Generic Name Dose Route Start Last Admin Trade Name Marissa PRN Reason Stop Dose Admin Hydromorphone HCl 2 mg 08/28/18 07:58 08/28/18 08:11 Dilaudid SUBCUT 08/28/18 07:59 2 mg ONETIME ONE Administration Morphine Sulfate 60 mg 08/28/18 09:05 08/28/18 09:20 Ms Contin PO 08/28/18 09:06 60 mg ONETIME ONE Administration Departure - Departure Time of Disposition: 10:00 Disposition: Home, Self-Care 01 Clinical Impression: Esophageal cancer - Discharge Information Instructions: Bone Metastasis Referrals: Geovani Kelly PA-C [Primary Care Provider] - Forms: ED Department Discharge Additional Instructions: Increase MS contin to 2 30mg tabs twice daily Always take this medication at the same time every day If this dose is not helping, please contact your oncologist next week to discuss increasing it to 3 tabs twice daily, or to come up with a different regimen. This medication has to be increased slowly every couple of days until you get to a dosage that helps. Continue with the oral dilaudid as needed for severe pain. The lynne is to get the level of pain control where you don't need to take the dilaudid as much, but for the time being, if you need it, you can take 1-2 tabs every 4 hours. - Assessment/Plan Plan: Increase MS contin to 2 30mg tabs twice daily Always take this medication at the same time every day If this dose is not helping, please contact your oncologist next week to discuss increasing it to 3 tabs twice daily, or to come up with a different regimen. This medication has to be increased slowly every couple of days until you get to a dosage that helps. Continue with the oral dilaudid as needed for severe pain. The lynne is to get the level of pain control where you don't need to take the dilaudid as much, but for the time being, if you need it, you can take 1-2 tabs every 4 hours.
== END 2018-08-28 09:30 | disposition home or self-care (01) ==
LOC: VM.ED 07:33
DX: C15.9 Malignant neoplasm of esophagus, unspecified (principal); I10 Essential (primary) hypertension; I25.10 Atherosclerotic heart disease of native coronary artery without angina pectoris; J44.9 Chronic obstructive pulmonary disease, unspecified; K21.9 Gastro-esophageal reflux disease without esophagitis; Z87.891 Personal history of nicotine dependence; Z79.899 Other long term (current) drug therapy
CPT/HCPCS: 96372; 99284; A9270; J1170

== ENCOUNTER 2018-09-18 20:15 | Emergency (ER) | payer OTHER ==
[2018-09-18] MEDS ORDERED: Ondansetron 4 MG/2 ML SDV IVPUSH ONE ×2 (20:31→21:31)
[2018-09-18] MEDS ORDERED: HYDROmorphone 1 MG/ML Syringe IVPUSH ONE ×2 (20:31→21:31)
[2018-09-18] MEDS ORDERED: GI Cocktail Oral Solution 30 ML PO ONE (20:32)
--- NOTE | 2018-09-18 20:42 | EDM.PDOC ---
ED HPI GENERAL MEDICAL PROBLEM - General Chief Complaint: General Stated Complaint: ER VISIT Time Seen by Provider: 09/18/18 20:24 Source of Information: Reports: Patient, Family History Limitations: Reports: No Limitations - History of Present Illness INITIAL COMMENTS - FREE TEXT/NARRATIVE: Patient arrives with nonspecific complaints of weakness, nausea, fatigue, being tired. Does state he has epigastric pain. States today everything worsened. He does have cancer of the liver, esophagus and bone. Was last treated with chemotherapy on August. Extensive medical history including SD with heart cath, bilateral DVT, carboplatin and taxol for chemo. Taking neulasta post chemo infusions. He is describing post chemo induced weakness, fatigue, nausea. Complaints that he is unable to eat, not drinking. Will work up chest and epigastric pain complaints to rule out acute SD. Denies headache, no diarrhea, but has constipation from opioid use. Onset: Gradual Duration: Getting Worse Location: Reports: Chest, Abdomen, Generalized Quality: Reports: Ache Severity: Mild Worsens with: Reports: Other (does not worsen with activity. no associated benz ) Associated Symptoms: Reports: Nausea/Vomiting Epigastric Pain Score (Numeric/FACES): 5 - Related Data Allergies Allergy/AdvReac Type Severity Reaction Status Date / Time No Known Allergies Allergy Verified 09/18/18 21:15 Home Meds: Home Meds Sennosides/Docusate Sodium [Senna-S] 2 tab PO BID 04/22/18 [History] Varenicline Tartrate [Chantix] 1 mg PO BID 04/22/18 [History] Acetaminophen [Tylenol] 650 mg PO Q4H PRN 06/08/18 [History] Clopidogrel Bisulfate [Plavix] 75 mg PO DAILY 06/08/18 [History] Gabapentin [Neurontin] 300 mg PO TID 06/08/18 [History] HYDROmorphone [Dilaudid] 2 mg PO Q3H PRN 06/08/18 [History] Lidocaine 5% [Lidoderm 5%] 1 patch TOP DAILY 06/08/18 [History] Lidocaine/Prilocaine [EMLA Crm] 1 applic TOP ASDIRECTED 06/08/18 [History] Morphine Sulfate [Morphabond ER] 30 mg PO Q12H 06/08/18 [History] Multivitamin with Minerals [Multiple Vitamin] 1 tab PO DAILY 06/08/18 [History] Nitroglycerin [Nitrostat] 0.4 mg SL ASDIRECTED PRN 06/08/18 [History] Omeprazole 40 mg PO DAILY 06/08/18 [History] Polyethylene Glycol 3350 [MiraLAX] 17 gm PO DAILY 06/08/18 [History] Ranitidine [Zantac] 150 mg PO BID 06/08/18 [History] atorvaSTATin [Lipitor] 40 mg PO BEDTIME 06/08/18 [History] Calcium Carbonate [Calci-Chew] 500 mg PO TID 06/25/18 [History] Enoxaparin [Lovenox] 200 mg SUBCUT DAILY 06/25/18 [History] Lisinopril 20 mg PO BEDTIME 06/25/18 [History] Metoprolol Succinate [Toprol XL] 25 mg PO DAILY 06/25/18 [History] Nystatin 100,000 unit PO QID 06/25/18 [History] Prochlorperazine Maleate [Compazine] 10 mg PO QID PRN 06/25/18 [History] Simethicone 80 mg PO QID PRN 06/25/18 [History] Psyllium Husk [Metamucil] 660 gm PO BID 08/09/18 [History] Morphine Sulfate [Morphine Sulfate ER] 30 mg PO TID #30 tablet.er 08/10/18 [Rx] Ondansetron [Zofran ODT] 4 mg PO Q6H PRN #30 tab.dis 08/10/18 [Rx] Past Medical History - Past Health History Medical/Surgical History: Denies Medical/Surgical History Cardiovascular History: Reports: CAD, Hypertension, SD, Stents Other Cardiovascular History: PAROXYSMAL SUPRAVENTRICULAR TACHYCARDIA Respiratory History: Reports: COPD Gastrointestinal History: Reports: GERD, Other (See Below) Other Gastrointestinal History: barretts esophagus Musculoskeletal History: Reports: Other (See Below) Other Musculoskeletal History: CLOSED FRACTURE OF NASAL BONES Psychiatric History: Reports: Other (See Below) Other Psychiatric History: PERSONAL HX OF TOBACCO USE. 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 He is unsure of the site, states that he thinks it's in the muscle. - Past Surgical History Cardiovascular Surgical History: Reports: Coronary Artery Stent GI Surgical History: Reports: Cholecystectomy, Colonoscopy Social & Family History - Family History Family Medical History: Noncontributory Cardiac: Reports: Other (See Below) Other Cardiac Family History: FAMILY HX ISCHEMIC HEART DISEASE - Caffeine Use Caffeine Use: Reports: Coffee ED ROS GENERAL - Review of Systems Review Of Systems: See Below Constitutional: Reports: No Symptoms HEENT: Reports: No Symptoms Respiratory: Reports: No Symptoms Cardiovascular: Reports: Chest Pain Endocrine: Reports: Fatigue GI/Abdominal: Reports: Abdominal Pain, Constipation : Reports: No Symptoms Musculoskeletal: Reports: No Symptoms Skin: Reports: No Symptoms Neurological: Reports: Weakness Psychiatric: Reports: No Symptoms Hematologic/Lymphatic: Reports: No Symptoms Immunologic: Reports: No Symptoms ED EXAM, GENERAL - Physical Exam Exam: See Below Exam Limited By: No Limitations General Appearance: Alert, WD/WN, No Apparent Distress Eye Exam: Bilateral Eye: EOMI, Normal Inspection, PERRL Ears: Normal TMs Nose: Normal Inspection, Normal Mucosa, No Blood Throat/Mouth: Normal Lips, Normal Teeth, Normal Gums, Normal Oropharynx, Other ( oral mucosa dry) Head: Atraumatic, Normocephalic Neck: Normal Inspection, Supple, Non-Tender, Full Range of Motion Respiratory/Chest: No Respiratory Distress, Lungs Clear, Normal Breath Sounds, No Accessory Muscle Use, Chest Non-Tender Cardiovascular: Normal Peripheral Pulses, Regular Rate, Rhythm, No Edema, No Gallop, No JVD, No Murmur, No Rub GI/Abdominal: Normal Bowel Sounds, Soft, Non-Tender, No Organomegaly, No Distention, No Abnormal Bruit, No Mass Extremities: Normal Inspection, Normal Range of Motion, Non-Tender, Normal Capillary Refill, No Pedal Edema Neurological: Alert, Oriented, CN II-XII Intact, Normal Cognition, Normal Gait, Normal Reflexes, No Motor/Sensory Deficits Psychiatric: Normal Affect, Normal Mood Skin Exam: Warm, Dry, Intact, Normal Color, No Rash Lymphatic: No Adenopathy Course - Vital Signs Last Recorded V/S: Last Vital Signs Temp 36.4 C 09/18/18 20:15 Pulse 47 L 09/18/18 20:15 Resp 18 09/18/18 20:15 BP 121/88 09/18/18 20:15 Pulse Ox 96 09/18/18 20:15 - Orders/Labs/Meds Orders: Active Orders 24 hr Category Date Time Status EKG Documentation Completion [RC] STAT Care 09/18/18 20:31 Ordered Sodium Chloride 0.9% [Normal Saline] 1,000 ml Med 09/18/18 20:45 Ordered IV ASDIRECTED Medication Orders Sodium Chloride (Normal Saline) 1,000 mls @ 999 mls/hr IV ASDIRECTED ALEJANDRO Last Admin: 09/18/18 20:39 Dose: 999 mls/hr Labs: Laboratory Tests 09/18/18 09/18/18 09/18/18 Range/Units 20:35 20:35 20:35 WBC 70.5 H* (4.0-10.0) x10^3/uL RBC 2.66 L (4.5-6.0) x10^6/uL Hgb 7.6 L (14.0-18.0) g/dL Hct 24.8 L (40.0-52.0) % MCV 93.2 H (78.0-93.0) fL MCH 28.6 (26.0-32.0) pg MCHC 30.6 L (32.0-36.0) g/dL RDW Coeff of Saritha 18.3 H (10.0-15.0) % Plt Count 345 D (130-400) x10^3/uL Add Manual Diff Yes Neutrophils % (Manual) 88 H (50-80) % Band Neutrophils % 8 H (0-6) % Lymphocytes % (Manual) 2 L (25-50) % Metamyelocytes % 2 H (0) % Nucleated RBCs 1 (0-5) /100WBC Platelet Estimate Adequate Hypochromasia 2+ moderate H PT 12.7 (10.0-12.8) SEC INR 1.1 L (2.0-3.5) Sodium 140 (136-145) mmol/L Potassium 3.1 L (3.5-5.1) mmol/L Chloride 104 (98-107) mmol/L Carbon Dioxide 29 (21-32) mmol/L Anion Gap 10.1 (10-20) mmol/L BUN 9 (7-18) mg/dL Creatinine 0.6 L (0.70-1.30) mg/dL Est Cr Clr Drug Dosing TNP Estimated GFR (MDRD) > 60 Glucose 92 (74-106) mg/dL Calcium 7.0 L (8.5-10.1) mg/dL Corrected Calcium 8.76 (8.5-10.1) mg/dL Total Bilirubin 0.4 (0.2-1.0) mg/dL AST 38 H (15-37) U/L ALT 11 L (16-63) U/L Alkaline Phosphatase 156 H (46-116) U/L Troponin I 0.037 (<=0.056) ng/mL Total Protein 5.3 L (6.4-8.2) g/dL Albumin 1.8 L (3.4-5.0) g/dL Globulin 3.5 Albumin/Globulin Ratio 0.51 Meds: Medications Generic Name Dose Route Start Last Admin Trade Name Freq PRN Reason Stop Dose Admin Sodium Chloride 1,000 mls @ 999 mls/hr 09/18/18 20:45 09/18/18 20:39 Normal Saline IV 999 mls/hr ASDIRECTED ALEJANDRO Administration Discontinued Medications Generic Name Dose Route Start Last Admin Trade Name Freq PRN Reason Stop Dose Admin Al Hydroxide/Mg Hydroxide 30 ml 09/18/18 20:32 09/18/18 20:48 Gi Cocktail PO 09/18/18 20:33 30 ml ONETIME ONE Administration Heparin Sodium (Porcine) 500 units 09/18/18 21:33 09/18/18 21:46 Heparin Lock Flush 100 Units/Ml IVPUSH 09/18/18 21:34 500 units ONETIME ONE Administration Hydromorphone HCl 1 mg 09/18/18 20:31 09/18/18 20:53 Dilaudid IVPUSH 09/18/18 20:32 1 mg ONETIME ONE Administration Hydromorphone HCl 1 mg 09/18/18 21:31 09/18/18 21:44 Dilaudid IVPUSH 09/18/18 21:32 1 mg ONETIME ONE Administration Ondansetron HCl 4 mg 09/18/18 20:31 09/18/18 20:48 Zofran IVPUSH 09/18/18 20:32 4 mg ONETIME ONE Administration Ondansetron HCl 4 mg 09/18/18 21:31 09/18/18 21:43 Zofran IVPUSH 09/18/18 21:32 4 mg ONETIME ONE Administration - Re-Assessments/Exams Free Text/Narrative Re-Assessment/Exam: 09/18/18 20:47 port accessed for lab draw Departure - Departure Time of Disposition: 21:54 Disposition: Home, Self-Care 01 Condition: Fair Clinical Impression: Medication side effect - Discharge Information *PRESCRIPTION DRUG MONITORING PROGRAM REVIEWED*: No *COPY OF PRESCRIPTION DRUG MONITORING REPORT IN PATIENT EVELYN: No Instructions: Pegfilgrastim injection Referrals: Geovani Kelly PA-C [Primary Care Provider] - Forms: ED Department Discharge Additional Instructions: Plan 1. Stay well hydrated 2. Take your pain medications as needed for pain 3. Zofran for nausea 4. It appears you are having side effects from the Neulasta, these should subside over the next 5-7 days, however this could take longer. Visit with your oncologist or PCP to determine if there is anything else that you can do for that. 5. Please call for any questions or concerns - Problem List & Annotations (1) Medication side effect SNOMED Code(s): 561481324 Code(s): T88.7XXA - UNSP ADVERSE EFFECT OF DRUG OR MEDICAMENT, INIT ENCNTR Status: Acute Priority: Medium Current Visit: Yes - Problem List Review Problem List Initiated/Reviewed/Updated: Yes - My Orders Last 24 Hours: My Active Orders 09/18/18 20:31 EKG Documentation Completion [RC] STAT 09/18/18 20:45 Sodium Chloride 0.9% [Normal Saline] 1,000 ml IV ASDIRECTED - Assessment/Plan Last 24 Hours: My Active Orders 09/18/18 20:31 EKG Documentation Completion [RC] STAT 09/18/18 20:45 Sodium Chloride 0.9% [Normal Saline] 1,000 ml IV ASDIRECTED Assessment:: medication side effects Plan: Plan 1. Stay well hydrated 2. Take your pain medications as needed for pain 3. Zofran for nausea 4. It appears you are having side effects from the Neulasta, these should subside over the next 5-7 days, however this could take longer. Visit with your oncologist or PCP to determine if there is anything else that you can do for that. 5. Please call for any questions or concerns
[2018-09-18] MEDS ORDERED: Sodium Chloride 0.9% 1,000 ML IV SCH (20:45)
[2018-09-18 21:14] LABS: CHLORIDE,CL 104 mmol/L (98-107); SODIUM,NA 140 mmol/L (136-145)
[2018-09-18 21:15] LABS: ANION GAP 10.1 mmol/L (10-20)
[2018-09-18 21:16] VITALS: BP 121/88
== END 2018-09-18 21:55 | disposition home or self-care (01) ==
LOC: VM.ED 20:15
DX: R53.1 Weakness (principal); T45.1X5A Adverse effect of antineoplastic and immunosuppressive drugs, initial encounter; C22.9 Malignant neoplasm of liver, not specified as primary or secondary; C15.9 Malignant neoplasm of esophagus, unspecified; C79.51 Secondary malignant neoplasm of bone; I10 Essential (primary) hypertension; I25.2 Old myocardial infarction; I25.10 Atherosclerotic heart disease of native coronary artery without angina pectoris; J44.9 Chronic obstructive pulmonary disease, unspecified; K21.9 Gastro-esophageal reflux disease without esophagitis; E66.9 Obesity, unspecified; Z79.899 Other long term (current) drug therapy; Z68.32 Body mass index [BMI] 32.0-32.9, adult
CPT/HCPCS: 80053; 84484; 85025; 85610; 93005; 96361; 96374; 96375; 96376; 99283-25; A9270-GY; J1170; J1642; J2405; J7030

== ENCOUNTER 2018-09-19 04:21 | Emergency (ER) | payer OTHER ==
[2018-09-19] MEDS ORDERED: HYDROmorphone 1 MG/ML Syringe IVPUSH ONE ×3 (04:54→06:22)
[2018-09-19] MEDS ORDERED: Potassium Chloride 20 MEQ Tab.ER PO ONE (06:21)
--- NOTE | 2018-09-19 06:31 | EDM.PDOC ---
ED HPI GENERAL MEDICAL PROBLEM - General Chief Complaint: Abdominal Pain Stated Complaint: Abdominal Pain Time Seen by Provider: 09/19/18 04:53 Source of Information: Reports: Patient History Limitations: Reports: No Limitations - History of Present Illness INITIAL COMMENTS - FREE TEXT/NARRATIVE: Patient returns this morning with similar complaints of right sided back pain radiating to his abdomen, nausea, vomiting. Presented earlier and pain was treated with IV medications through his port which was effective, but once back at the care center, oral pain medications just did not cover his pain. He has no other complaints. Onset: Gradual Duration: Getting Worse Location: Reports: Abdomen, Generalized Quality: Reports: Sharp, Stabbing Severity: Severe Improves with: Reports: None Worsens with: Reports: None Associated Symptoms: Reports: Nausea/Vomiting - Related Data Allergies Allergy/AdvReac Type Severity Reaction Status Date / Time No Known Allergies Allergy Verified 09/18/18 21:15 Home Meds: Home Meds Sennosides/Docusate Sodium [Senna-S] 2 tab PO BID 04/22/18 [History] Varenicline Tartrate [Chantix] 1 mg PO BID 04/22/18 [History] Acetaminophen [Tylenol] 650 mg PO Q4H PRN 06/08/18 [History] Clopidogrel Bisulfate [Plavix] 75 mg PO DAILY 06/08/18 [History] Gabapentin [Neurontin] 300 mg PO TID 06/08/18 [History] HYDROmorphone [Dilaudid] 2 mg PO Q3H PRN 06/08/18 [History] Lidocaine 5% [Lidoderm 5%] 1 patch TOP DAILY 06/08/18 [History] Lidocaine/Prilocaine [EMLA Crm] 1 applic TOP ASDIRECTED 06/08/18 [History] Morphine Sulfate [Morphabond ER] 30 mg PO Q12H 06/08/18 [History] Multivitamin with Minerals [Multiple Vitamin] 1 tab PO DAILY 06/08/18 [History] Nitroglycerin [Nitrostat] 0.4 mg SL ASDIRECTED PRN 06/08/18 [History] Omeprazole 40 mg PO DAILY 06/08/18 [History] Polyethylene Glycol 3350 [MiraLAX] 17 gm PO DAILY 06/08/18 [History] Ranitidine [Zantac] 150 mg PO BID 06/08/18 [History] atorvaSTATin [Lipitor] 40 mg PO BEDTIME 06/08/18 [History] Calcium Carbonate [Calci-Chew] 500 mg PO TID 06/25/18 [History] Enoxaparin [Lovenox] 200 mg SUBCUT DAILY 06/25/18 [History] Lisinopril 20 mg PO BEDTIME 06/25/18 [History] Metoprolol Succinate [Toprol XL] 25 mg PO DAILY 06/25/18 [History] Nystatin 100,000 unit PO QID 06/25/18 [History] Prochlorperazine Maleate [Compazine] 10 mg PO QID PRN 06/25/18 [History] Simethicone 80 mg PO QID PRN 06/25/18 [History] Psyllium Husk [Metamucil] 660 gm PO BID 08/09/18 [History] Morphine Sulfate [Morphine Sulfate ER] 30 mg PO TID #30 tablet.er 08/10/18 [Rx] Ondansetron [Zofran ODT] 4 mg PO Q6H PRN #30 tab.dis 08/10/18 [Rx] Past Medical History - Past Health History Medical/Surgical History: Denies Medical/Surgical History Cardiovascular History: Reports: CAD, Hypertension, [place], Stents Other Cardiovascular History: PAROXYSMAL SUPRAVENTRICULAR TACHYCARDIA Respiratory History: Reports: COPD Gastrointestinal History: Reports: GERD, Other (See Below) Other Gastrointestinal History: barretts esophagus Musculoskeletal History: Reports: Other (See Below) Other Musculoskeletal History: CLOSED FRACTURE OF NASAL BONES Psychiatric History: Reports: Other (See Below) Other Psychiatric History: PERSONAL HX OF TOBACCO USE. PERSONAL HX OF ALCOHOLISM Endocrine/Metabolic History: Reports: Obesity/BMI 30+, Other (See Below) Other Endocrine/Metabolic History: IMPAIRED FASTING GLUCOSE Hematologic History: Reports: Other (See Below) Other Hematologic History: hypokalemia Oncologic (Cancer) History: Reports: Esophageal, Metastatic, Other (See Below) Other Oncologic History: Reports also that he has cancer that has spread to his back. He is unsure of the site, states that he thinks it's in the muscle. - Past Surgical History Cardiovascular Surgical History: Reports: Coronary Artery Stent GI Surgical History: Reports: Cholecystectomy, Colonoscopy Social & Family History - Family History Family Medical History: Noncontributory Cardiac: Reports: Other (See Below) Other Cardiac Family History: FAMILY HX ISCHEMIC HEART DISEASE - Caffeine Use Caffeine Use: Reports: Coffee ED ROS GENERAL - Review of Systems Review Of Systems: See Below Constitutional: Reports: No Symptoms HEENT: Reports: No Symptoms Respiratory: Reports: No Symptoms Cardiovascular: Reports: Chest Pain Endocrine: Reports: No Symptoms GI/Abdominal: Reports: Abdominal Pain : Reports: No Symptoms Musculoskeletal: Reports: Back Pain Skin: Reports: No Symptoms Neurological: Reports: No Symptoms Psychiatric: Reports: No Symptoms Hematologic/Lymphatic: Reports: No Symptoms Immunologic: Reports: No Symptoms ED EXAM, GI/ABD - Physical Exam Exam: See Below Exam Limited By: No Limitations General Appearance: Alert, WD/WN, No Apparent Distress Eyes: Bilateral: Normal Appearance, EOMI Ears: Normal TMs Nose: Normal Inspection, Normal Mucosa, No Blood Throat/Mouth: Normal Inspection, Normal Lips, Normal Teeth, Normal Gums, Normal Oropharynx, Normal Voice, No Airway Compromise Head: Atraumatic, Normocephalic Neck: Normal Inspection, Supple, Non-Tender, Full Range of Motion Respiratory/Chest: No Respiratory Distress, Lungs Clear, Normal Breath Sounds, No Accessory Muscle Use, Chest Non-Tender Cardiovascular: Normal Peripheral Pulses, Regular Rate, Rhythm, No Edema, No Gallop, No JVD, No Murmur, No Rub GI/Abdominal Exam: Normal Bowel Sounds, Soft, Non-Tender, No Organomegaly, No Distention, No Abnormal Bruit, No Mass, Pelvis Stable Back Exam: Normal Inspection, Full Range of Motion, NT Extremities: Normal Inspection, Normal Range of Motion, Non-Tender, Normal Capillary Refill, No Pedal Edema Neurological: Alert, Oriented, CN II-XII Intact, Normal Cognition, Normal Gait, Normal Reflexes, No Motor/Sensory Deficits Psychiatric: Normal Affect, Normal Mood Skin Exam: Warm, Dry, Intact, Normal Color, No Rash Lymphatic: No Adenopathy Course - Orders/Labs/Meds Orders: Active Orders 24 hr Category Date Time Status Abdomen Pelvis wo Cont [CT] Stat Exams 09/19/18 04:59 Taken Meds: Medications Discontinued Medications Generic Name Dose Route Start Last Admin Trade Name Freq PRN Reason Stop Dose Admin Hydromorphone HCl 1 mg 09/19/18 04:54 09/19/18 05:05 Dilaudid IVPUSH 09/19/18 04:55 1 mg ONETIME ONE Administration Hydromorphone HCl 1 mg 09/19/18 05:35 09/19/18 05:54 Dilaudid IVPUSH 09/19/18 05:36 1 mg ONETIME ONE Administration Hydromorphone HCl 1 mg 09/19/18 06:22 09/19/18 06:27 Dilaudid IVPUSH 09/19/18 06:23 1 mg ONETIME ONE Administration Potassium Chloride 40 meq 09/19/18 06:21 09/19/18 06:26 Klor-Con M20 PO 09/19/18 06:22 40 meq ONETIME ONE Administration - Re-Assessments/Exams Free Text/Narrative Re-Assessment/Exam: 09/19/18 06:37 40 oral KCL given. Departure - Departure Time of Disposition: 07:07 Disposition: Home, Self-Care 01 Condition: Good Clinical Impression: Medication side effect - Discharge Information *PRESCRIPTION DRUG MONITORING PROGRAM REVIEWED*: No *COPY OF PRESCRIPTION DRUG MONITORING REPORT IN PATIENT EVELYN: No Referrals: Kimberley Smith MD [Primary Care Provider] - Forms: ED Department Discharge, Interfacility Transfer [facility] ED Communication - ED Communication Date/Time Date: 09/19/18 Time Called: 06:00 - Discussed Case With (1) Discussed Case With (1): Admitting Provider (Dr. Pike, hospitalist and Dr. Miller , oncology given report. [facility] to accept patient) - Problem List & Annotations (1) Medication side effect SNOMED Code(s): 755392068 Code(s): T88.7XXA - UNSP ADVERSE EFFECT OF DRUG OR MEDICAMENT, INIT ENCNTR Status: Acute Priority: Medium - Problem List Review Problem List Initiated/Reviewed/Updated: Yes - My Orders Last 24 Hours: My Active Orders 09/19/18 04:59 Abdomen Pelvis wo Cont [CT] Stat - Assessment/Plan Last 24 Hours: My Active Orders 09/19/18 04:59 Abdomen Pelvis wo Cont [CT] Stat Assessment:: medication side effects
--- NOTE | 2018-09-19 09:10 | CT ---
[id number] CT/CT Abdomen Pelvis WO IV EXAM: ABDOMEN AND PELVIS CT WITHOUT CONTRAST INDICATION: Pain. COMPARISON: August 09, 2017. DISCUSSION: There are small bilateral pleural effusions with associated volume loss in the lower lobes with minimal progression relative to the prior study. Ill-defined mass is suggested in the pancreatic body measuring about 4.7 x 2.4 cm. Milder adjacent regional adenopathy including a 25 x 16 mm gastrohepatic node. The retroperitoneal nodes remain prominent in number. There is indistinctness of the fat around the splenic artery and dedicated pancreas MRI or CT may be useful for further evaluation. There are scattered ill-defined pancreatic masses throughout the liver measuring up to about 3.7 cm. These may have slightly increased in size, but comparing today's unenhanced exam to the previous enhanced exam is limited. A left adrenal nodule is stable to slightly increased measuring about 30 x 15 mm and could represent an adenoma or metastasis. Stable 20 mm exophytic right renal cyst. Cholecystectomy. Mildly prominent stool volume in the proximal colon. Unenhanced images of the pancreas, right adrenal gland, left kidney, small bowel and appendix are unremarkable. No free air or free fluid. Stable subtle sclerotic foci throughout the imaged skeleton and a lytic right sixth rib lesion consistent with metastatic disease. IMPRESSION: 1. Poorly defined pancreatic body mass measuring about 4.7 x 2.4 cm suggesting primary pancreatic malignancy. There is associated regional adenopathy, liver and osseous metastases. The osseous metastases are similar to the prior study, but the liver metastases may have increased. 2. Minimal interval change in small bilateral pleural effusions with associated partial atelectasis of both lower lobes. Indra Coppola MD 09/19/18 0908 Thank you for allowing us to participate in the care of your patient.
[2018-09-20 05:39] VITALS: BP 131/53
== END 2018-09-19 07:05 | disposition short-term general hospital (02) ==
LOC: VM.ED 04:21
DX: R10.84 Generalized abdominal pain (principal); R11.2 Nausea with vomiting, unspecified; T88.7XXA Unspecified adverse effect of drug or medicament, initial encounter; I10 Essential (primary) hypertension; I25.2 Old myocardial infarction; J44.9 Chronic obstructive pulmonary disease, unspecified; K21.9 Gastro-esophageal reflux disease without esophagitis; Z79.899 Other long term (current) drug therapy
CPT/HCPCS: 74176; 96374; 96376; 99285; A9270; J1170